=== PATIENT | female | born 1960 | race Caucasian/White ===

== ENCOUNTER 2016-02-18 21:25 | Emergency (ER) ==
[2016-02-18] MEDS ORDERED: PULMICORT INH ONE (22:05)
[2016-02-18] MEDS ORDERED: XOPENEX NEB INH ONE (22:05)
--- NOTE | 2016-02-18 22:08 | PROVIDER DOCUMENTATION ---
HPI-Respiratory General - General Chief Complaint: Shortness of Breath Stated Complaint: SOB Time Seen by Provider: 02/18/16 21:53 Source: patient Allergies/Adverse Reactions: Patient Allergies Allergy/AdvReac Type Severity Reaction Status Date / Time Penicillins Allergy Intermediate HIVES; Verified 02/04/16 18:32 ANAPHYLAXIS morphine Allergy Mild itch Verified 02/04/16 18:32 meperidine HCl * AdvReac Unknown Verified 02/04/16 18:32 [From Demerol] Home Medications: Tiotropium [place] [Spiriva] 1 puff IH DAILY 11/03/11 Budesonide/Formoterol Fumarate [Symbicort 160-4.5 Mcg Inhaler] 2 puff INH BID Albuterol Sulfate [Proair Hfa] 8.5 gm IH DAILY 05/06/15 Bupropion X.l. [Wellbutrin Xl] 150 mg PO DAILY 02/04/16 Enalapril Maleate [Vasotec] 20 mg PO BID 02/04/16 Metformin [Glucophage] 500 mg PO BID CC 02/04/16 Rosuvastatin Calcium [Crestor] 10 mg PO QHS 02/04/16 Sitagliptin Phosphate [Januvia] 100 mg PO BID 02/04/16 - History of Present Illness-Resp Nature of Presenting Problem: 55 y/o WF presents to the ED with SOB and coughing for 2 days. Pt states her breathing has gotten worse today and the last time she felt this way she had pneumonia. Pt states she has coughed so hard that she has rib pain. Quality of Pain: reports: tightness Severity in ED: reports: mild, moderate Onset/Duration: reports: 2 days ago Timing: reports: still present, getting worse Cough Quality/Degree: reports: severe, dry cough Current Respiratory Medication Therapy: Initiated albuterol/atrovent inhale, Initiated A/A nebulizer Modifying Factors: improves with: nothing Associated Symptoms: reports: cough, shortness of breath. denies: fever/chills , headache, muscle/bodyaches, nasal congestion, nasal drainage Similar Symptoms Previously?: Yes Recently seen or treated by another doctor?: No Review of Systems - Adult - REVIEW OF SYSTEMS - ADULT Constitutional: denies: chills, fever Eyes: reports: no symptoms reported Ears, Nose, Mouth & Throat: reports: no symptoms reported Cardiovascular: reports: no symptoms reported Respiratory: reports: cough, shortness of breath Gastrointestinal: denies: abdominal pain, nausea, vomiting Genitourinary: reports: no symptoms reported Musculoskeletal: reports: bone pain (ribs). denies: back pain, joint pain, neck pain Integumentary: reports: no symptoms reported Neurological: reports: no symptoms reported Psychiatric: reports: no symptoms reported Endocrine: reports: no symptoms reported Hematologic/Lymphatic: reports: no symptoms reported Allergic/Immunologic: reports: no symptoms reported All Other Systems: Reviewed and Negative Past History - Adult - PAST MEDICAL HISTORY-ADULT Review of Records: reports: Old Records Reviewed, Nursing Assessment Review, Medications Reviewed Cardiovascular: reports: CAD, HTN, hyperlipidemia Respiratory: reports: COPD, sleep apnea Psychiatric: reports: anxiety Endocrine/Immune: reports: Diabetes Other Conditions: reports: MRSA - PRIOR SURGERIES/PROCEDURES Surgical/Procedure History: reports: appendectomy, cardiac stent (last 2014), BTL, , tonsillectomy, other (pilonidal cyst excision) - PRIOR HOSPITALIZATIONS Prior Hospitalizations: reports: none - IMMUNIZATION STATUS Childhood Immunizations: See Nurse Assessment Flu Vaccine: See Nurse Assessment - FAMILY HISTORY Family History: reviewed, not pertinent - SOCIAL HISTORY Smoking: cigarettes, greater than 1 pack/day Living Situation: alone Physical Exam-General - PHYSICAL EXAM-ADULT Initial Vital Signs Reviewed: Yes - CONSTITUTIONAL General Appearance: alert, no apparent distress, obese (morbid) - EYES Eyes: PERRL/EOMI, pink conjunctivae - HEAD, EARS, NOSE, MOUTH & THROAT HENMT: moist mucous membranes, normal ENT inspection, TMs normal, pharynx normal - NECK Neck: non-tender, full range of motion, supple, normal inspection - RESPIRATORY Respiratory: decreased breath sounds (right), crackles (all serrano), wheezing ( left) - CARDIOVASCULAR Cardiovascular: normal peripheral pulses, regular rate, rhythm - GASTROINTESTINAL (ABDOMEN) Abdominal Exam: normal bowel sounds, non tender, soft - MUSCULOSKELETAL Back Exam: normal inspection, no CVA tenderness, no vertebral tenderness Extremity: normal range of motion, non-tender, normal gait, normal inspection - SKIN Integumentary: normal color, normal turgor, warm/dry - NEUROLOGIC Neurologic: grossly normal, no motor/sensory deficits - PSYCHIATRIC Psych/Mental Status: normal mood/affect, normal thought content, normal thought process, oriented x 3 Progress - PLAN OF CARE/RESULTS Progress/Plan/Lab Results: Orders Category Date Time Status CHEST-2 VIEWS [RAD] Stat Exams 02/18/16 22:04 Taken BNP [PRO B-NATRIURETIC PEPTIDE] Stat Lab 02/18/16 22:30 Completed CBC WITH DIFF [HEME] Stat Lab 02/18/16 22:30 Completed CK PROFILE [SP CHEM] Stat Lab 02/18/16 22:30 Completed COMPREHENSIVE METABOLIC PANEL [CHEM] Stat Lab 02/18/16 22:30 Completed TROPONIN T Stat Lab 02/18/16 22:30 Completed Acetaminophen [Tylenol] Med 02/19/16 01:23 Discontinued 650 mg PO NOW ONE Budesonide [Pulmicort] Med 02/18/16 22:05 Discontinued 0.5 mg INH NOW ONE Furosemide [Lasix] Med 02/18/16 23:34 Discontinued 40 mg IV NOW ONE Ketorolac [Toradol] Med 02/18/16 23:45 Discontinued 30 mg .ROUTE .STK-MED ONE Ketorolac [Toradol] Med 02/18/16 23:35 Discontinued 30 mg IV NOW ONE Levalbuterol Neb [Xopenex Neb] Med 02/18/16 22:05 Discontinued 1.25 mg INH NOW ONE Nitroglycerin Med 02/18/16 23:35 Discontinued 1 inch TOP NOW ONE Oxycodone/APAP 5 mg/325 mg [Percocet-5] Med 02/19/16 01:28 Discontinued 1 each PO NOW ONE Promethazine [Phenergan] Med 02/18/16 23:35 Discontinued 25 mg IV NOW ONE Sodium Chloride 0.9% Med 02/18/16 23:35 Discontinued 10 ml INJ NOW ONE Aerosol Treatments Routine Oth 02/18/16 22:06 Completed Aerosol Treatments Stat Oth 02/18/16 22:06 Completed EKG [EKG] Stat Ther 02/18/16 23:40 Ordered Vital Signs Temp Pulse Resp BP Pulse Ox 02/19/16 01:10 98.6 F 96 H 18 106/60 100 02/18/16 22:20 95 H 22 94 L 02/18/16 21:32 95 H 22 143/68 94 L Penicillins Allergy (Intermediate, Verified 02/04/16 18:32) HIVES; ANAPHYLAXIS morphine Allergy (Mild, Verified 02/04/16 18:32) itch meperidine HCl * [From Demerol] Adverse Reaction (Verified 02/04/16 18:32) Unknown Tiotropium [place] [Spiriva] 1 puff IH DAILY 11/03/11 Budesonide/Formoterol Fumarate [Symbicort 160-4.5 Mcg Inhaler] 2 puff INH BID Albuterol Sulfate [Proair Hfa] 8.5 gm IH DAILY 05/06/15 Bupropion X.l. [Wellbutrin Xl] 150 mg PO DAILY 02/04/16 Enalapril Maleate [Vasotec] 20 mg PO BID 02/04/16 Metformin [Glucophage] 500 mg PO BID CC 02/04/16 Ondansetron [Zofran] 8 mg PO Q6HR #12 tablet 02/04/16 Pantoprazole [Protonix] 40 mg PO DIRECTED #90 tablet 02/04/16 Rosuvastatin Calcium [Crestor] 10 mg PO QHS 02/04/16 Sitagliptin Phosphate [Januvia] 100 mg PO BID 02/04/16 Tramadol [Ultram] 50 mg PO Q6H PRN PRN #12 tablet 02/04/16 Furosemide [Lasix] 20 mg PO DAILY PRN #30 tablet 02/19/16 Laboratory 02/18/16 02/18/16 02/18/16 22:30 22:30 22:30 WBC RBC Hgb Hct MCV MCH MCHC RDW Std Deviation Plt Count MPV Immature Gran % (Auto) Neut % (Auto) Lymph % (Auto) [place] % (Auto) Eos % (Auto) Baso % (Auto) Immature Gran # (Auto) Neut # (Auto) Lymph # (Auto) [place] # (Auto) Eos # (Auto) Baso # (Auto) Sodium 133 L Potassium 4.1 Chloride 97 L Carbon Dioxide 27 Anion Gap 9 BUN 14 Creatinine 1.0 H Estimated GFR/1.73 m2 58 BUN/Creatinine Ratio 14 Glucose 134 H Calculated Osmolality 269 Calcium 9.2 Total Bilirubin 0.20 AST 16 ALT 14 Alkaline Phosphatase 97 Creatine Kinase 568 H Creatine Kinase Index 0.5 CK-MB (CK-2) 2.71 Troponin T < 0.010 Ylr-V-Cijndroggez Pept Total Protein 7.1 Albumin 4.0 Globulin 3.0 Albumin/Globulin Ratio 1.0 02/18/16 02/18/16 22:30 22:30 WBC 9.00 RBC 4.84 Hgb 12.8 Hct 39.7 MCV 82.0 MCH 26.4 L MCHC 32.2 L RDW Std Deviation 14.7 H Plt Count 279 MPV 9.5 Immature Gran % (Auto) 0.2 Neut % (Auto) 60.9 Lymph % (Auto) 26.0 [place] % (Auto) 10.6 H Eos % (Auto) 2.1 Baso % (Auto) 0.2 Immature Gran # (Auto) 0.02 Neut # (Auto) 5.48 Lymph # (Auto) 2.34 [place] # (Auto) 0.95 H Eos # (Auto) 0.19 Baso # (Auto) 0.02 Sodium Potassium Chloride Carbon Dioxide Anion Gap BUN Creatinine Estimated GFR/1.73 m2 BUN/Creatinine Ratio Glucose Calculated Osmolality Calcium Total Bilirubin AST ALT Alkaline Phosphatase Creatine Kinase Creatine Kinase Index CK-MB (CK-2) Troponin T Yar-S-Ppvbiipllyd Pept 482 H Total Protein Albumin Globulin Albumin/Globulin Ratio - EKG 1 Time of EKG reading by physician:: 23:59 EKG Read and Signed by:: Mehul Garcia Rate: 96 Rhythm: NSR QRS: LVH Comments: no acute st- T changes - XRAY 1 XRAY Study: Chest Impression: Normal XRAY Interpretation: no acute infiltrates, tinting in right diaphram Departure - Departure Time of Disposition Order: 01:34 DIAGNOSIS: COPD exacerbation CHF (congestive heart failure) Qualifiers: Congestive heart failure type: unspecified congestive heart failure type Congestive heart failure chronicity: unspecified congestive heart failure chronicity Qualified Code(s): I50.9 - Heart failure, unspecified Disposition: HOME 01 Certified Medical Emergency: Emergent Condition: Fair Additional Instructions: use SYMBICORT twice a day as directed see your doctor tomorrow Prescriptions: Furosemide [Lasix] 20 mg PO DAILY PRN #30 tablet PRN Reason: Congestion Referrals: Quentin Mariano Jr, MD [Primary Care Provider] - Attestation - Scribe Verification/Attestation Scribe:: Sen Farrar Acting as Scribe for:: Mehul Garcia Scribe documention review:: This chart was documented by a scribe and accurately reflects the service the provider performed and the decisions made by the provider.
[2016-02-18 22:35] LABS: MANUAL DIFF NEEDED? NO
[2016-02-18 22:37] LABS: BASO% 0.2 % (0.0-0.8); EOS# 0.19 X1000 (0.0-0.7); EOS% 2.1 % (0.0-10.0); HEMATOCRIT 39.7 % (37.0-47.0); HEMOGLOBIN 12.8 g/dL (12.0-16.0); IMM GRAN# 0.02 X1000 (0.0-0.04); IMM GRAN% 0.2 % (0.0-0.5); LYMPH# 2.34 X1000 (1.2-3.4); MCH 26.4 PG (27-31); MCHC 32.2 g/dL (33-37); MONO# 0.95 X1000 (0.11-0.59); MONO% 10.6 % (1.7-9.3); MPV 9.5 FL (7.4-10.4); NEUT% 60.9 % (42.2-75.2); PLT 279 X1000 (130-400); RBC 4.84 XMIL (4.2-5.4)
[2016-02-18 23:04] LABS: CALCIUM 9.2 mg/dL (8.8-10.2); POTASSIUM 4.1 mmol/L (3.5-5.1); TOTAL BILIRUBIN 0.2 mg/dL (0.20-1.00); TOTAL PROTEIN 7.1 g/dL (6.3-8.3)
[2016-02-18] MEDS ORDERED: LASIX IV ONE (23:34)
[2016-02-18] MEDS ORDERED: PHENERGAN IV ONE (23:35)
[2016-02-18] MEDS ORDERED: NITROGLYCERIN TOP ONE (23:35)
[2016-02-18] MEDS ORDERED: TORADOL IV ONE (23:35)
[2016-02-18] MEDS ORDERED: SODIUM CHLORIDE 0.9% INJ ONE (23:35)
[2016-02-18] MEDS ORDERED: TORADOL ONE (23:45)
[2016-02-19 00:37] LABS: CK INDEX 0.5 (0.0-2.5); CK-MB 2.71 ng/mL (0.0-5.0)
[2016-02-19] MEDS ORDERED: TYLENOL PO ONE (01:23)
[2016-02-19] MEDS ORDERED: PERCOCET-5 PO ONE (01:28)
[2016-02-19 02:08] VITALS: BP 106/63
--- NOTE | 2016-02-19 05:24 | EKG Report ---
Test Performed on : 02/18/2016 11:59:08 PM Test Reason : ER Blood Pressure : / mmHG Vent. Rate : 096 BPM Atrial Rate : 096 BPM P-R Int : 154 ms QRS Dur : 088 ms QT Int : 358 ms P-R-T Axes : 073 049 061 degrees QTc Int : 452 ms Normal sinus rhythm. with sinus arrhythmia. Low voltage QRS Borderline ECG When compared with ECG of 04-FEB-2016 17:22, No significant change was found Unconfirmed Result
--- NOTE | 2016-02-19 11:28 | Diag Imaging Result Document ---
PROCEDURE NAME: CHEST-2 VIEWS - 02/18/2016 CHEST, TWO VIEWS: INDICATION: Shortness of breath. COMPARISON: 02/04/2016. FINDINGS: The heart size is within normal limits. There is stable prominence of the right paratracheal region dating back to 11/03/2011 with no abnormalities noted on a CT angiogram of the pulmonary arteries performed 07/10/2012. There is stable prominent extrapleural density in the right lateral hemithorax. 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 The pulmonary vasculature is not congested. There are no acute infiltrates or effusions. IMPRESSION: Stable chest. No acute abnormalities are appreciated.
== END 2016-02-19 02:08 | disposition home or self-care (01) ==
LOC: P.ED 21:25
DX: J44.1 Chronic obstructive pulmonary disease with (acute) exacerbation (principal); I50.9 Heart failure, unspecified; R06.02 Shortness of breath; R05 Cough; R07.81 Pleurodynia; R06.2 Wheezing; I25.10 Atherosclerotic heart disease of native coronary artery without angina pectoris; I10 Essential (primary) hypertension; Z79.899 Other long term (current) drug therapy; E78.5 Hyperlipidemia, unspecified; E11.9 Type 2 diabetes mellitus without complications; F41.9 Anxiety disorder, unspecified; E66.01 Morbid (severe) obesity due to excess calories; F17.210 Nicotine dependence, cigarettes, uncomplicated; Z79.51 Long term (current) use of inhaled steroids; Z86.14 Personal history of Methicillin resistant Staphylococcus aureus infection; Z95.5 Presence of coronary angioplasty implant and graft
CPT/HCPCS: 71020; 80053; 82550; 82553; 83880; 84484; 85025; 93005; 94640; 96374; 96375; J1885; J1940; J2550

== ENCOUNTER 2016-06-28 14:56 | Inpatient (IN) ==
[2016-06-28] MEDS ORDERED: ASPIRIN PO STA (15:02)
[2016-06-28 15:45] LABS: MANUAL DIFF NEEDED? NO
--- NOTE | 2016-06-28 15:46 | ED EKG INTERP ---
This chart was entered by Claudia Moseley Scribe, acting as scribe for Marycarmen Luciano MD. EKG Interpretation - EKG Time of EKG reading by physician:: 15:08 EKG Read and Signed by:: Marycarmen Luciano EKG Interpretation (*Must complete 3 of following elements*): Normal Rate: 86 Rhythm: Sinus rhythm wtih premature atrial complexes in a pattern of bieminy QRS: other (low voltage) Comments: borderline ECG This chart was documented by the indicated scribe, (Claudia Moseley, Scribe) and accurately reflects the services I performed and decisions made by me, Marycarmen Luciano MD, as attested by the provider's signature.
[2016-06-28 15:54] LABS: BASO% 0.3 % (0.0-0.8); EOS# 0.31 X1000 (0.0-0.7); EOS% 3.6 % (0.0-10.0); HEMATOCRIT 43.3 % (37.0-47.0); HEMOGLOBIN 14.1 g/dL (12.0-16.0); IMM GRAN# 0.04 X1000 (0.0-0.04); IMM GRAN% 0.5 % (0.0-0.5); LYMPH% 32.4 % (20.5-51.1); MCH 26.9 PG (27-31); MCHC 32.6 g/dL (33-37); MCV 82.6 FL (81-99); MONO% 10.4 % (1.7-9.3); MPV 10.9 FL (7.4-10.4); NEUT% 52.8 % (42.2-75.2); PLT 252 X1000 (130-400); RBC 5.24 XMIL (4.2-5.4)
[2016-06-28 16:01] LABS: PROTIME 10.5 Seconds (9.2-11.7); PTT 23.2 Seconds (22.0-36.0)
--- NOTE | 2016-06-28 16:03 | Diag Imaging Result Doc PS360 ---
EXAM: CHEST-2 VIEWS HISTORY: CP TECHNIQUE: Two views the chest. COMMENT: Considering differences in technique there has been no significant change since previous study of 02/18/2016. IMPRESSION: Stable chest. Electronically signed by Luis Manuel Reagan 06/28/2016 4:01 PM
--- NOTE | 2016-06-28 16:14 | PROVIDER DOCUMENTATION ---
This chart was entered by Claudia Moseley Scribe, acting as scribe for Marycarmen Luciano MD. HPI-Chest Pain - General Chief Complaint: Chest Pain Stated Complaint: N/V/D Time Seen by Provider: 06/28/16 15:07 Source: patient Allergies/Adverse Reactions: Patient Allergies Allergy/AdvReac Type Severity Reaction Status Date / Time Penicillins Allergy Intermediate HIVES; Verified 02/04/16 18:32 ANAPHYLAXIS morphine Allergy Mild itch Verified 02/04/16 18:32 meperidine HCl * AdvReac Unknown Verified 02/04/16 18:32 [From Demerol] Home Medications: Home Medication List Medication Instructions Recorded Confirmed Last Taken Type Tiotropium [place] [Spiriva] 1 puff IH DAILY 11/03/11 06/28/16 06/21/16 07:00 History 1 PUFF Budesonide/Formoterol Fumarate 2 puff INH BID 09/07/13 06/28/16 06/21/16 07:00 History [Symbicort 160-4.5 Mcg Inhaler] 2 PUFF Albuterol Sulfate [Proair Hfa] 8.5 gm IH DAILY 05/06/15 06/28/16 06/21/16 07:00 History 8.5 GM Bupropion X.l. [Wellbutrin Xl] 150 mg PO DAILY 02/04/16 06/28/16 06/21/16 07:00 History 150 MG Enalapril Maleate [Vasotec] 20 mg PO BID 02/04/16 06/28/16 06/21/16 07:00 History 20 MG Pantoprazole [Protonix] 40 mg PO DIRECTED #90 tablet 02/04/16 06/28/16 07:00 Rx 40 MG Rosuvastatin Calcium [Crestor] 10 mg PO QHS 02/04/16 06/28/16 06/21/16 07:00 History 10 MG Sitagliptin Phosphate [Januvia] 100 mg PO BID 02/04/16 06/28/16 06/21/16 07:00 History 100 MG Furosemide [Lasix] 20 mg PO DAILY PRN #30 tablet 02/19/16 06/28/16 06/21/16 07: 00 Rx 20 MG Aspirin 325 mg PO DAILY 06/28/16 06/28/16 06/21/16 07:00 History 325 MG Sitagliptin Phos/Metformin HCl 1 each PO BID 06/28/16 06/28/16 06/21/16 07:00 History [Janumet 50-500 mg Tablet] 1 EACH - History of Present Illness-CP Nature of Presenting Problem: 55 year old female presents to the ER with complaint of chest pain x 3 days. Pt states she is also experiencing N/V and tingling in left upper extremity. Pt has had two previous heart attacks and had a heart cath in Nov 2014. Location: reports: epigastric Chest Pain Radiation: reports: arms (left) Onset/Duration: 3 days ago Timing: still present Associated Symptoms: reports: abdominal pain, fever/chills, nausea, vomiting Review of Systems - Adult - REVIEW OF SYSTEMS - ADULT Constitutional: reports: fever (states she felt like she had a fever yesterday) . denies: chills Eyes: reports: no symptoms reported Ears, Nose, Mouth & Throat: reports: no symptoms reported Cardiovascular: reports: chest pain. denies: palpitations Respiratory: reports: cough Gastrointestinal: reports: no symptoms reported Genitourinary: reports: no symptoms reported Musculoskeletal: reports: no symptoms reported Integumentary: reports: no symptoms reported Neurological: reports: no symptoms reported Psychiatric: reports: no symptoms reported Endocrine: reports: no symptoms reported Hematologic/Lymphatic: reports: no symptoms reported Allergic/Immunologic: reports: no symptoms reported All Other Systems: Reviewed and Negative Past History - Adult - PAST MEDICAL HISTORY-ADULT Review of Records: reports: Nursing Assessment Review, Medications Reviewed Cardiovascular: reports: CAD, HTN, hyperlipidemia Respiratory: reports: COPD, sleep apnea Psychiatric: reports: anxiety Endocrine/Immune: reports: Diabetes Other Conditions: reports: MRSA - PRIOR SURGERIES/PROCEDURES Surgical/Procedure History: reports: appendectomy, cardiac stent (last 2014), BTL, , tonsillectomy, other (pilonidal cyst excision) - PRIOR HOSPITALIZATIONS Prior Hospitalizations: reports: none - IMMUNIZATION STATUS Childhood Immunizations: See Nurse Assessment Flu Vaccine: See Nurse Assessment - FAMILY HISTORY Family History: reviewed, not pertinent Physical Exam-General - PHYSICAL EXAM-ADULT Initial Vital Signs Reviewed: Yes - CONSTITUTIONAL General Appearance: alert, no apparent distress - EYES Eyes: PERRL/EOMI, pink conjunctivae - HEAD, EARS, NOSE, MOUTH & THROAT HENMT: normocephalic/atraumatic, moist mucous membranes - NECK Neck: supple, normal inspection - RESPIRATORY Respiratory: lungs clear, normal breath sounds - CARDIOVASCULAR Cardiovascular: normal peripheral pulses, regular rate, rhythm - MUSCULOSKELETAL Back Exam: no CVA tenderness, no vertebral tenderness Extremity: normal range of motion, normal inspection - SKIN Integumentary: normal color, warm/dry - NEUROLOGIC Neurologic: grossly normal, no motor/sensory deficits - PSYCHIATRIC Psych/Mental Status: normal mood/affect, normal thought content, normal thought process, oriented x 3 Progress - PLAN OF CARE/RESULTS Progress/Plan/Lab Results: Vital Signs - 8 hr 06/28/16 14:59 Temperature 98.2 F Pulse Rate 83 Respiratory Rate 18 Blood Pressure 139/62 O2 Sat by Pulse Oximetry 97 Laboratory Results - last 24 hr 06/28/16 06/28/16 06/28/16 15:16 15:16 15:16 WBC 8.63 RBC 5.24 Hgb 14.1 Hct 43.3 MCV 82.6 MCH 26.9 L MCHC 32.6 L RDW Std Deviation 15.6 H Plt Count 252 MPV 10.9 H Immature Gran % (Auto) 0.5 Neut % (Auto) 52.8 Lymph % (Auto) 32.4 [place] % (Auto) 10.4 H Eos % (Auto) 3.6 Baso % (Auto) 0.3 Immature Gran # (Auto) 0.04 Neut # (Auto) 4.55 Lymph # (Auto) 2.80 [place] # (Auto) 0.90 H Eos # (Auto) 0.31 Baso # (Auto) 0.03 PT INR PTT (Actin FS) D-Dimer 0.52 H Sodium 136 Potassium 4.9 Chloride 97 L Carbon Dioxide 25 Anion Gap 14 BUN 15 Creatinine 1.1 H Estimated GFR/1.73 m2 52 BUN/Creatinine Ratio 14 Glucose 153 H Calculated Osmolality 276 Calcium 9.2 Magnesium 1.8 Total Bilirubin 0.21 AST 17 ALT 16 Alkaline Phosphatase 99 Creatine Kinase 165 Troponin T Yyq-O-Mixlxskxgef Pept Total Protein 7.5 Albumin 3.9 Globulin 3.6 Albumin/Globulin Ratio 1.1 06/28/16 06/28/16 06/28/16 15:16 15:16 15:16 WBC RBC Hgb Hct MCV MCH MCHC RDW Std Deviation Plt Count MPV Immature Gran % (Auto) Neut % (Auto) Lymph % (Auto) [place] % (Auto) Eos % (Auto) Baso % (Auto) Immature Gran # (Auto) Neut # (Auto) Lymph # (Auto) [place] # (Auto) Eos # (Auto) Baso # (Auto) PT 10.5 INR 1.00 PTT (Actin FS) 23.2 D-Dimer Sodium Potassium Chloride Carbon Dioxide Anion Gap BUN Creatinine Estimated GFR/1.73 m2 BUN/Creatinine Ratio Glucose Calculated Osmolality Calcium Magnesium Total Bilirubin AST ALT Alkaline Phosphatase Creatine Kinase Troponin T < 0.010 Aav-Y-Mixpxiatqhy Pept 236 H Total Protein Albumin Globulin Albumin/Globulin Ratio Orders Category Date Time Status Cardiac Monitoring DIRECTED Care 06/28/16 15:02 Active Oxygen Therapy- ED Nursing DIRECTED Care 06/28/16 15:02 Active Saline Loc NOW Care 06/28/16 15:02 Active CHEST-2 VIEWS [RAD] Stat Exams 06/28/16 15:02 Completed CBC WITH ELECTRONIC DIFF [HEME] Stat Lab 06/28/16 15:16 Completed CK PROFILE [SP CHEM] Stat Lab 06/28/16 15:16 Completed COMPREHENSIVE METABOLIC PANEL [CHEM] Stat Lab 06/28/16 15:16 Completed D-DIMER [CHEM] Stat Lab 06/28/16 15:16 Completed LIPASE [CHEM] Stat Lab 06/28/16 16:33 Ordered MAGNESIUM [CHEM] Stat Lab 06/28/16 15:16 Completed PRO B-NATRIURETIC PEPTIDE Stat Lab 06/28/16 15:16 Completed PROTIME WITH INR [COAG] Stat Lab 06/28/16 15:16 Completed PTT [COAG] Stat Lab 06/28/16 15:16 Completed TROPONIN T Stat Lab 06/28/16 15:16 Completed UA NIMS W/REFLEX CULT [URINALYSIS] Stat Lab 06/28/16 15:21 Uncollected Aspirin Med 06/28/16 15:02 Discontinued 325 mg PO STAT STA Hydromorphone [Dilaudid] Med 06/28/16 16:15 Discontinued 1 mg IV NOW ONE Lido/Lino Alk/Al&mg Hydrox [G.i. Cocktail] Med 06/28/16 16:15 Discontinued 30 ml PO NOW ONE Nitroglycerin Med 06/28/16 16:35 Discontinued 1 inch TOP NOW ONE Ondansetron [Zofran] Med 06/28/16 16:15 Discontinued 8 mg IV NOW ONE EKG [EKG] Stat Ther 06/28/16 15:02 Ordered Result Diagrams: 06/28/16 15:16 06/28/16 15:16 - CONSULTS/PCP/HOSPITALIST Notification #1 *Consult/PCP/Hospitalist*: Dr. Thornton Reason/Comments: Will admit to ICU Consult Disposition: Admit Departure - Departure Time of Disposition Decision: 16:38 DIAGNOSIS: Chest pain Qualifiers: Chest pain type: unspecified Qualified Code(s): R07.9 - Chest pain, unspecified Disposition: ADMITTED INPATIENT 09 Certified Medical Emergency: Emergent Condition: Stable Referrals and Follow-Ups: Quentin Mariano Jr, MD [Primary Care Provider] - - Critical Care Note This patient required my direct & personal management of CC.: No This chart was documented by the indicated scribe, (Claudia Moseley, Scribe) and accurately reflects the services I performed and decisions made by me, Marycarmen Luciano MD, as attested by the provider's signature.
[2016-06-28] MEDS ORDERED: DILAUDID IV ONE (16:15)
[2016-06-28] MEDS ORDERED: ZOFRAN IV ONE (16:15)
[2016-06-28] MEDS ORDERED: G.I. COCKTAIL PO ONE (16:15)
[2016-06-28 16:17] LABS: ALBUMIN 3.9 g/dL (3.5-5.0); CALCIUM 9.2 mg/dL (8.8-10.2); MAGNESIUM 1.8 mg/dL (1.5-2.7); POTASSIUM 4.9 mmol/L (3.5-5.1); TOTAL BILIRUBIN 0.21 mg/dL (0.20-1.00); TOTAL PROTEIN 7.5 g/dL (6.3-8.3)
[2016-06-28] MEDS ORDERED: NITROGLYCERIN TOP ONE (16:35)
[2016-06-28] MEDS ORDERED: LASIX PO PRN (19:20)
[2016-06-28] MEDS ORDERED: TYLENOL PO PRN (19:26)
[2016-06-28] MEDS ORDERED: PROTONIX PO SCH (19:30)
[2016-06-28] MEDS: NITROGLYCERIN TOP SCH (20:05)
[2016-06-28] MEDS ORDERED: NS 500 ML IV ONE ×2 (20:15→21:04)
[2016-06-28] MEDS: HUMULIN R SUBQ SCH (20:26)
[2016-06-28] MEDS ORDERED: VASOTEC PO SCH (21:00)
[2016-06-28] MEDS: CRESTOR PO SCH (21:11)
[2016-06-28] MEDS: ROBITUSSIN-DM PO SCH (21:34)
[2016-06-28] MEDS: ALBUTEROL NEB INH SCH (23:05)
[2016-06-29] MEDS: ROBITUSSIN-DM PO SCH ×6 (00:49→20:37)
[2016-06-29] MEDS: NITROGLYCERIN TOP SCH ×4 (01:23→20:28)
[2016-06-29] MEDS: ALBUTEROL NEB INH SCH ×5 (03:54→23:15)
[2016-06-29] MEDS: DILAUDID IV PRN ×3 (04:12→20:36)
--- NOTE | 2016-06-29 04:19 | HISTORY AND PHYSICAL ---
CHIEF COMPLAINT: Chest pain. HISTORY OF PRESENT ILLNESS: The patient is a 55-year-old, white female, followed by Dr. Quentin Mariano. Presents to the emergency room complaining of chest pain. She says it began around 3 days ago. Pain has been more present when she has been up moving about and was most pronounced yesterday. She said she would was trying to fold clothes in wash clothes and do the laundry which her daughter he usually helps with. Daughter was out of the house. She says the pain would last for around 4 minutes and then miguelangel. It seemed to improve if she would sit down, so today she has not been nearly as active. She says the pain has been present left upper chest, inferior to the left breast, and she also has noted some tingling sensation down her left mid fingertips, and some numbness in her left thigh area associated. The patient has a history of coronary artery disease and had her last stent in 2014, with PA at that time per her report. Also, had a first stent in 2004, and an PA at that time. The patient has been followed by Dr. North, and thinks she had a stress test maybe the year before last. MEDICATIONS PRIOR TO ADMISSION: 1. ProAir HFA inhaler. 2. Janumet 50/500 one p.o. b.i.d. She says she is on Janumet 100 mg b.i.d., as well. Concerned that is wrong. 3. Aspirin 325 mg p.o. daily. 4. Symbicort 160 two puffs b.i.d. 5. Wellbutrin XL 150 mg p.o. daily. 6. Vasotec 20 mg p.o. b.i.d. 7. Lasix 20 mg p.o. q.a.m. p.r.n. swelling. 8. Protonix 40 mg p.o. daily. 9. Crestor 10 mg p.o. at bedtime. 10. Spiriva 1 inhalation daily. ALLERGIES: Penicillin, morphine, Demerol. PAST MEDICAL HISTORY: 1. CAD, outlined above. 2. Hypertension. 3. Morbid obesity. 4. Hypercholesterolemia. 5. Obstructive sleep apnea. 6. Persistent tobacco abuse, long-standing. 7. Type 2 diabetes mellitus. 8. COPD, on chronic home oxygen therapy at 2 L/minute 24-hours a day. 9. Morbid obesity. PAST SURGICAL HISTORY: 1. BTL. 2. . 3. Appendectomy. 4. Tonsillectomy. 5. Cataract surgery. 6. Pilonidal cyst removal. 7. Stents to the heart x2. FAMILY HISTORY: Notable for mother dying of lung cancer. Also, cancers prominent in her family, as is coronary artery disease. SOCIAL HISTORY: [place] patient [place] the local area. She has been over the past 6 months. She has 1 child of her own, and has 2 other step daughters. She does not drink alcohol, and denies drug use, but she continues to smoke about a quarter to a half-pack a day. She has been a longstanding smoker, smoking up to 3 packs a day in the fairly recent past. REVIEW OF SYSTEMS: Had a bowel movement this morning slightly loose for her. She has had cold symptoms with mild head congestion, sinus drainage, mild nonproductive cough for 2-3 days. She has had no fever. Denies dysuria. Prominent nausea, improved with Zofran in the ER. Otherwise, review of systems completely negative, except as above. PHYSICAL EXAMINATION: VITAL SIGNS: See chart. GENERAL: Morbidly obese white female. Currently, denies any chest pain. Nitroglycerin paste in place. SKIN: No rashes identified. HEENT: NC/AT. PERRL. EOMI. Sclerae clear. OP: No redness. Tongue in the midline. NECK: No LA, TMG, JVD, bruits. Neck is very large. CARDIOVASCULAR: Irregularly irregular. No murmur. LUNGS: Crackles at the left lung base. BACK: Nontender. ABDOMEN: Protuberant. A right ventral hernia is noted, chronic. EXTREMITIES: No calf tenderness, cords, or edema. NEUROLOGIC: Cranial nerves 2-12 are intact. Nonfocal. She moves all extremities well. BREASTS: Deferred. PELVIC: Deferred. RECTAL: Deferred. DIAGNOSTIC DATA: EKG shows bigeminy pattern, without acute ST changes. Chest x-ray shows no acute changes. LABORATORY DATA: White count 8.6, hemoglobin 14.1, hematocrit 43.3, MCV 83, platelets 252,000, neutrophils 53, lymphocytes 33, monocytes 10. PT 10.5, INR 1, PTT 23.2. D-dimer 0.52. Sodium 136, potassium 4.9, chloride 97, CO2 25, BUN 15, creatinine 1.1, glucose 153. Calcium 9.2, magnesium 1.8. Total bilirubin 0.21, AST 17, ALT 16, alkaline phosphatase 99. Total CK 165. Troponin less than 0.01. ProBNP 236. Total protein 7.5, albumin 3.9. Lipase 29. ASSESSMENT: 1. Chest pain, somewhat atypical. 2. Pronounced coronary artery disease. 3. Morbid obesity. 4. Upper respiratory infection. 5. Left lung crackles. 6. Hypertension. 7. Type 2 diabetes mellitus. 8. Dyslipidemia. 9. Obstructive sleep apnea. 10. Chronic obstructive pulmonary disease, on chronic oxygen therapy. 11. Persistent tobacco abuse. PLAN: Encouraged smoking cessation. We will continue her home medications, to include aspirin, Vasotec. We will give her nitroglycerin paste, Dilaudid as needed for pain, Zofran as needed for nausea. We will ask Cardiology to see the patient in the morning. Will obtain serial cardiac enzymes, troponin levels in the interim. cc: MD Quentin Simon Jr, MD
[2016-06-29 04:23] LABS: URINE CULTURE NEEDED? NO; URINE MICRO REVIEW NEEDED? NO; URINE SOURCE CLEAN CATCH
[2016-06-29 04:29] LABS: BILIRUBIN URINE NEGATIVE (NEGATIVE); BLOOD URINE NEGATIVE (NEGATIVE); COLOR YELLOW; GLUCOSE URINE NEGATIVE (NEGATIVE); LEUKOCYTES URINE NEGATIVE (NEGATIVE); NITRITE URINE NEGATIVE (NEGATIVE); PH URINE 5.5; PROTEIN URINE NEGATIVE (NEGATIVE); SP GRAVITY URINE 1.012; TURBIDITY URINE CLEAR (CLEAR); UR EPITHELIAL CELLS <10 /HPF (<10); URINE BACTERIA NEGATIVE /HPF; URINE RBC <10 /HPF (<10); URINE WBC <10 /HPF (<10); UROBILINOGEN URINE NORMAL (NORMAL)
[2016-06-29 04:37] LABS: MANUAL DIFF NEEDED? NO
[2016-06-29 04:45] LABS: BASO% 0.2 % (0.0-0.8); EOS# 0.17 X1000 (0.0-0.7); EOS% 1.9 % (0.0-10.0); HEMOGLOBIN 12.9 g/dL (12.0-16.0); LYMPH# 3.34 X1000 (1.2-3.4); LYMPH% 37.7 % (20.5-51.1); MCH 27.3 PG (27-31); MCHC 32.3 g/dL (33-37); MCV 84.7 FL (81-99); MONO# 0.94 X1000 (0.11-0.59); MONO% 10.6 % (1.7-9.3); MPV 9.9 FL (7.4-10.4); NEUT% 49.6 % (42.2-75.2); PLT 259 X1000 (130-400); RBC 4.72 XMIL (4.2-5.4)
[2016-06-29 05:06] LABS: CALCIUM 8.5 mg/dL (8.8-10.2); POTASSIUM 4.7 mmol/L (3.5-5.1)
--- NOTE | 2016-06-29 05:57 | EKG Report ---
Test Performed on : 06/28/2016 3:08:56 PM Test Reason : Chest Pain Blood Pressure : / mmHG Vent. Rate : 086 BPM Atrial Rate : 086 BPM P-R Int : 156 ms QRS Dur : 086 ms QT Int : 376 ms P-R-T Axes : 063 056 061 degrees QTc Int : 449 ms Sinus rhythm. with premature atrial complexes. in a pattern of bigeminy. Low voltage QRS Borderline ECG When compared with ECG of 18-FEB-2016 23:59, premature atrial complexes. are now present Unconfirmed Result
[2016-06-29] MEDS: PROTONIX PO SCH (06:17)
[2016-06-29] MEDS: HUMULIN R SUBQ SCH ×4 (06:17→20:29)
--- NOTE | 2016-06-29 07:30 | Diag Imaging Result Doc PS360 ---
CHEST-PORTABLE - 06/29/2016 INDICATION: Chest Pain TECHNIQUE: COMPARISON: 06/28/2016 FINDINGS: The lungs are normally expanded and clear. Heart size and mediastinal contours are normal. No pneumothorax or pleural effusion. IMPRESSION: Negative exam. Electronically signed by Alex Jacob 06/29/2016 7:27 AM
--- NOTE | 2016-06-29 07:35 | EKG Report ---
Test Performed on : 06/29/2016 06:40:09 AM Test Reason : CP Blood Pressure : / mmHG Vent. Rate : 070 BPM Atrial Rate : 070 BPM P-R Int : 162 ms QRS Dur : 092 ms QT Int : 416 ms P-R-T Axes : 059 060 072 degrees QTc Int : 449 ms Normal sinus rhythm. with sinus arrhythmia. Normal ECG When compared with ECG of 28-JUN-2016 15:08, premature atrial complexes. are no longer present Confirmed by [facility] BELL, Jony Bustos ([id number]) on 06/29/2016 10:57:16 AM
[2016-06-29] MEDS: SYMBICORT 160/4.5 MICROGM INHALER INH SCH ×2 (07:43→19:35)
[2016-06-29] MEDS: SPIRIVA INH SCH (07:44)
[2016-06-29] MEDS ORDERED: DUONEB (A & A) INH PRN (08:50)
--- NOTE | 2016-06-29 09:06 | PROGRESS NOTE ---
DATE: 06/29/2016 SUBJECTIVE: The patient tells me she had some substernal chest pain, worse with exertion. She has had this since she has been in the hospital. She had also started this past Wednesday having numbness on the left side of her face going down her left arm, and she felt like her face was drawing at one time, but now she has got coronary artery disease and has had a stent placement. She is diabetic and has hyperlipidemia. OBJECTIVE: Vital signs are stable. HEENT: She is normocephalic and atraumatic. PERRLA. Throat clear. Lungs have a few scattered wheezes and scattered rales. She does have COPD. Heart: Regular rate and rhythm without murmurs, gallops, or friction rubs. Abdomen soft with active bowel sounds. No organomegaly or tenderness. Neurological exam is intact at this point. ASSESSMENT: 1. Chest pain with known coronary artery disease. 2. Exacerbation of chronic obstructive pulmonary disease. 3. Possible transient ischemic attack. PLAN: We will get Cardiology and Neurology to look at her. Please see orders. cc: Quentin Mariano Jr, MD
[2016-06-29 09:08] LABS: HDL 28 mg/dL (45-65); LDL 34 mg/dL; TRIGLYCERIDES 248 mg/dL (35-135); VLDL 50 mg/dL
[2016-06-29] MEDS: ASPIRIN PO SCH (09:10)
[2016-06-29] MEDS: WELLBUTRIN XL PO SCH (09:10)
[2016-06-29 09:11] LABS: HEMOGLOBIN A1C 6.8 % (4.8-6.0)
[2016-06-29] MEDS ORDERED: PRINIVIL PO SCH (10:30)
[2016-06-29] MEDS: ZOFRAN IV PRN ×2 (11:14→20:45)
[2016-06-29] MEDS: PRINIVIL PO SCH (11:14)
[2016-06-29] MEDS ORDERED: LEXISCAN ONE (12:07)
[2016-06-29] MEDS ORDERED: AMINOPHYLLINE ONE (12:46)
--- NOTE | 2016-06-29 16:09 | Diag Imaging Result Document ---
PROCEDURE NAME: MYOCARDIAL PERF SCAN, STR/REST - 06/29/2016 PROCEDURE: Lexiscan Cardiolite stress test TECHNIQUE: Lexiscan was infused per standard protocol. The patient baseline blood pressure was 116/51 during Lexiscan infusion. There was a drop in blood pressure to 81/37. Patient was given aminophylline. She did not complain of chest pain. Harrell weak. There were no dysrhythmias noted. Following Lexiscan infusion, Cardiolite was injected. Stress electrocardiogram was negative for ischemia. 15.3 mCi of Cardiolite was injected for the rest phase 44.7 mCi of Cardiolite was injected for the stress phase. Gated SPECT images were obtained in standard views. FINDINGS: Images revealed normal left ventricular systolic function. There is significant chest wall attenuation. There is low-grade reversible perfusion defect in the distal anteroapical portion. This could represent attenuation defect or ischemia. In addition, there was fixed defect noted in the mid and base inferior wall suggestive again of infarct or significant associated diaphragmatic attenuation. However, there is a reversible perfusion defect in the inferolateral wall suggestive of ischemia. There is patchy defect noted. This again could represent significant attenuation defect and/or a cardiomyopathy picture. Recommend clinical correlation. Left ventricular ejection fraction 75%. CONCLUSIONS: 1. Patient had drop in blood pressure during Lexiscan infusion. 2. No chest pain. 3. Negative Lexiscan stress electrocardiogram. 4. Myocardial perfusion images revealed low-grade reversible perfusion defect in the distal anteroapical portion. In addition, there was reversible perfusion defect in the inferolateral portion. This is all associated with significant attenuation, chest and diaphragmatic. Would recommend clinical correlation. 5. There was fixed defect noted in the inferior wall, mid and base in the setting of significant diaphragmatic and chest wall attenuation. Would recommend clinical correlation. Wall motion was normal. Left ventricular ejection fraction 75%. cc: MD Rosa Isela Gunn PA
--- NOTE | 2016-06-29 17:37 | CONSULTATION ---
DATE OF CONSULTATION: 06/29/2016 REASON FOR CONSULTATION: The patient is seen in consultation at the request of Dr. Garcaí Jr. for evaluation of possible transient ischemic attack. HISTORY OF PRESENT ILLNESS: Patient is a 55-year-old white female with multiple stroke risk factors who was admitted yesterday with chest pain. She mentioned also that on Wednesday she had some tingling with numbness involving left side of her face that flushed down into her left arm. Sometimes she has a burning, tingly sensation on the upper outer left thigh. Initially said this was new since Wednesday and that she has had approximately 4 episodes since that time. Near the end of the interview and examination, she tells me that actually she has had intermittent tingling in her left arm for at least a year and it is not always associated with tingling in her face. She does note that this is mostly tingling with maybe some numbness, but that it does not feel like her arm is going to sleep. On Wednesday she noticed it while pushing a shopping cart at [employer]. It did not seem to change when she changed the position of her arm. She says that this lasts a couple of seconds, but no longer than 2 minutes. She does not have any other symptoms during this time. She says her daughter notes that she can tell when she is having one of these episodes because she can see it in her eyes. The patient also mentions that she has had headaches off and on her whole life, but in the last 3 or 4 years her headaches have been more severe and they have been feeling different than her headaches when she was younger. She has tension in her temples and forehead, and it goes into her neck. +nausea. No sensitivity to light or sound. She takes previously Advil and Tylenol, but then that stopped helping as much, so she has recently taken Aleve. She has been in the last couple of months having daily headaches, maybe 1-2 per day. The Aleve helps completely relieves the headache within 1/2 hour. She also later notes that the tingling that she is having in her arm feels like the tingling she had in her arm with prior heart attacks. She has had this tingling during headaches, but also when she has not been having headache. She has no history of seizures. There is no family history of seizures. She said she was dropped when she was a child and hit her head. 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 The patient was around [place] time last year. She says that she has been very depressed since that time and has good days and bad days. She also says that her family member had some type of brain cancer, and when I initially walked in the room she says she thinks she needs a scan of her head. PAST MEDICAL HISTORY: 1. Coronary artery disease. 2. Myocardial infarction x2, status post PCI. 3. Hypertension. 4. Morbid obesity. 5. Hypercholesterolemia. 6. Obstructive sleep apnea. 7. Type 2 diabetes. 8. COPD, on home oxygen. 9. Tobacco abuse, long-standing. 10. Bilateral tubal ligation. 11. . 12. Appendectomy. 13. Tonsillectomy. 14. Cataract surgery. ALLERGIES: Penicillin, morphine and Demerol. FAMILY HISTORY: Her mother of lung cancer. There are also other cancers in the family, including some type of brain cancer. Coronary artery disease. No seizures. Her sister has had migraines. SOCIAL HISTORY: She has been since [place] time. She has been very depressed since that time. She has good days and bad days. She smokes cigarettes. No alcohol or drug use. REVIEW OF SYSTEMS: Notable for some mild cough/cold symptoms and recent nausea as well as headache. Also chest pain and otherwise noted in HPI. MEDICATIONS: Reviewed. She is taking aspirin 325 mg daily, Wellbutrin, Crestor. She is also getting p.r.n. Dilaudid and Zofran. PHYSICAL EXAMINATION: Vital signs: Are reviewed. Her blood pressure today is 138/56, pulse 78. General: The patient is lying in bed, somewhat on her left side. She is morbidly obese. She is pleasant and interactive. Neck: Supple without carotid bruits. Cardiovascular: Regular rate and rhythm. No murmur appreciated. Lungs: Are clear anteriorly. Abdomen: Is soft, nontender. Extremities: Her legs are short. No cyanosis. Neurologic: Mental status: She is awake and alert. Her attention and concentration are intact. Speech is fluent and appropriate. Naming is intact. Language is intact. Cranial nerves: Pupils are equal, round, reactive to light. Extraocular muscles are intact. No nystagmus. Visual serrano are full to direct confrontational testing. Facial sensation is intact. Face is symmetric with equal activation. Hearing is grossly intact. Palate elevates symmetrically. Unable to see the uvula. Tongue is midline. Full shoulder shrug bilaterally. Normal SCM strength. Motor examination: Normal bulk and tone. No abnormal movements. No drift. Her strength is symmetric in all extremities and intact. Reflexes are 1+ throughout and symmetric. Plantar response is flexor bilaterally. No clonus. No Luigi. Sensory exam is intact to vibration and temperature, as well as to light touch. [id number] and rapid alternating movements. Gait was not tested. PERTINENT DIAGNOSTICS: EKG today is normal sinus rhythm. Chest x-ray yesterday was negative. White count 8.8, hemoglobin 13, hematocrit 45, platelets are 259,000. BUN 18, creatinine 1.3. Sodium 141, potassium 4.7, glucose 165, calcium 8.5, magnesium 1.8. AST and ALT are normal as well as alkaline phosphatase. Her CK and troponin are negative. Triglycerides were elevated at 248. LDL 34. HDL 28. Urinalysis is negative. ASSESSMENT AND PLAN: A 55-year-old, female with multiple stroke risk factors admitted with chest pain and cardiac rule out. Also reporting an inconsistent history of brief episodes of left-sided, most prominently tingling, but some numbness. Given her multiple risk factors and a history which is plausible for TIA, I think it is prudent to evaluate with MRI/MRA, although I am not convinced that these are TIAs. I would continue her aspirin 325 mg as you are doing. We will see if the imaging is revealing. The episodes are a bit short lived, making migraine phenomenon less likely as well. The sensations that she is having in her left upper lateral thigh are slightly different in that she notes that there is also burning with the tingling and numbness, and that to me sounds more consistent with meralgia paresthetica, most likely due to her weight. She does report troublesome neck pain longstanding and perhaps her symptoms are due to that, so I have ordered a MRI of her cervical spine as well. Lastly, overall she says mostly her symptoms consist of prominent tingling sensation as opposed to numbness, although when asked she does also say there is maybe some numbness with it. In general, with stroke you would see numbness as opposed to prominent tingling, but again, her history giving is inconsistent. We will order an EEG to assess for any interictal abnormalities. Thank you for this consultation. cc: MD Quentin El Jr, MD MTDD
--- NOTE | 2016-06-29 19:27 | CONSULTATION ---
DATE OF CONSULTATION: 06/29/2016 IMPRESSION: 1. Chest pain, atypical for myocardial ischemia with associated numbness in left arm, left side of face and upper left leg. She describes some associated posterior neck discomfort as well. 2. Atherosclerotic coronary disease with history of previous coronary angioplasty/stenting of the right coronary artery, most recently in November 2014. 3. Morbid obesity. 4. Hypertension. 5. Type 2 diabetes mellitus. 6. Obstructive sleep apnea. 7. Chronic obstructive pulmonary disease. 8. Chronic ongoing cigarette use. RECOMMENDATIONS: 1. Given that there is no objective evidence of ongoing myocardial ischemia, would pursue Lexiscan sestamibi study. If negative, would continue medical management and pursue alternative workup for patient's symptoms. 2. Smoking cessation strongly advised. HISTORY: This 55-year-old female with history of previous coronary angioplasty/stenting of the right coronary artery on 2 occasions, most recently in November 2014, morbid obesity, hypertension, type 2 diabetes mellitus and obstructive sleep apnea was admitted for further evaluation of chest symptoms and left arm and upper left leg numbness and tingling. She describes a vague low substernal mild discomfort for the last 2 days. She also describes some numbness and tingling in the left side of her face, left neck, left upper extremity and upper part of her left leg. She also has some posterior neck discomfort in the low cervical region. She is presently without chest discomfort. PAST MEDICAL HISTORY: 1. Atherosclerotic coronary artery disease, history of two previous coronary angioplasty/stent on the right coronary artery, last in November 2014. 2. Morbid obesity. 3. Hypertension. 4. Hypertension. 5. Type 2 diabetes mellitus. 6. Obstructive sleep apnea. 7. COPD. PAST SURGICAL HISTORY: Appendectomy, tonsillectomy, cataract extraction, section and tubal ligation. ALLERGIC: Allergic or intolerant to penicillin, morphine and meperidine. MEDICATIONS PRIOR TO ADMISSION: As listed. SOCIAL HISTORY: She is and disabled. She lives alone. She smokes occasional cigarette and is rather vague on the number of cigarettes she smokes. She does not use alcohol. FAMILY HISTORY: Negative for premature coronary artery disease. REVIEW OF SYSTEMS: Pulmonary: Negative. Gastrointestinal: Negative. Constitutional: Negative. The remainder of review of systems negative with 14 total systems reviewed. PHYSICAL EXAMINATION: General: This is a morbidly obese, middle-aged female in no distress. Vital signs: Blood pressure 117/61, heart rate is 69 and regular. HEENT: Extraocular movements intact. Mucous membranes are moist. Neck: Supple without jugular venous distention. There are no carotid bruits. Chest: Clear to auscultation. Cardiac: Reveals a regular rate and rhythm without appreciable murmur or gallop. Abdomen: Soft, nontender. Extremities: Without edema. Neurologic: Reveals her to be alert, fully oriented. Speech is fluent. She moves all 4 extremities equally well. Skin: Warm and dry. Psychiatric: Reveals mood to be appropriate. DIAGNOSTICS: ECG demonstrates sinus rhythm with sinus arrhythmia, but is otherwise within normal limits. LABORATORY DATA: Initial troponin T less than 0.01. Followup troponin T less than 0.01. cc: MD Quentin Heller Jr, MD
[2016-06-29] MEDS: CRESTOR PO SCH (20:35)
[2016-06-30] MEDS: DILAUDID IV PRN ×3 (00:57→20:09)
[2016-06-30] MEDS: ZOFRAN IV PRN ×3 (00:59→20:22)
[2016-06-30] MEDS: ALBUTEROL NEB INH SCH ×7 (03:35→23:12)
[2016-06-30] MEDS: ROBITUSSIN-DM PO SCH ×5 (06:13→20:10)
[2016-06-30] MEDS: NITROGLYCERIN TOP SCH ×4 (06:13→20:10)
[2016-06-30] MEDS: HUMULIN R SUBQ SCH ×4 (06:14→20:09)
[2016-06-30] MEDS: PROTONIX PO SCH (07:33)
[2016-06-30] MEDS: SYMBICORT 160/4.5 MICROGM INHALER INH SCH ×2 (07:41→19:42)
[2016-06-30] MEDS: SPIRIVA INH SCH (07:42)
[2016-06-30] MEDS: ASPIRIN PO SCH (08:37)
[2016-06-30] MEDS: WELLBUTRIN XL PO SCH (08:37)
[2016-06-30] MEDS: PRINIVIL PO SCH (08:37)
--- NOTE | 2016-06-30 09:18 | PROGRESS NOTE ---
DATE: 06/30/2016 SUBJECTIVE: The patient says she is still having a little chest pain at times. She has had no more tingling in her left arm or face. OBJECTIVE: Vital Signs: Blood pressure is 92/60, pulse 87 and regular, respirations are 15 and unlabored. Temperature 98.6 degrees Fahrenheit. Oxygen saturation is 93% on 2 L with nasal cannula. HEENT: She is normocephalic. EOMs intact. PERRLA. Throat clear. Lungs: Sound clear to auscultation and percussion without rhonchi, rales, or wheezes. She had a little wheezing yesterday but has had breathing treatments. Heart: Regular rate rhythm without murmurs, gallops, or friction rubs. Abdomen: Soft. Active bowel sounds. No organomegaly or tenderness. Neurological: Examination was intact grossly. Diagnostic Data: By nuclear scan, the heart did show some reversible ischemia, especially in the inferior part of the heart. We will have cardiology interpret and make recommendations. Patient could not get an MRI scan and MRA scan of the brain due to size. We will get carotid flow studies. ASSESSMENT: 1. Chest pain with known coronary artery disease. 2. Possible transient ischemic attack. 3. Chronic obstructive pulmonary disease. 4. Morbid obesity. 5. Adult onset diabetes mellitus. 6. Hyperlipidemia. PLAN: Continue care. Awaiting final evaluations by the specialists. Appreciate Dr. Collado, cardiology, seeing the patient and Dr. Contreras, neurology, seeing the patient. cc: Quentin Mariano Jr, MD
[2016-06-30] MEDS ORDERED: DILAUDID ONE (09:47)
--- NOTE | 2016-06-30 10:49 | PROGRESS NOTE ---
DATE: 06/30/2016 SUBJECTIVE: The patient continues without further chest symptoms. She denies dyspnea on room air. OBJECTIVE: Vital Signs: Blood pressure 92/60, heart rate 87 and irregular. Neck: There is no significant jugular distention. Chest: Clear to auscultation. Cardiac Exam: Was a regular rate and rhythm without appreciable murmur or gallop. There is no evidence of edema. LAB DATA: This includes initial troponin less than 0.01. Followup troponin less than 0.01. Lexiscan sestamibi study reviewed. There is significant soft tissue attenuation and equivocal reversibility as described. Study is essentially nondiagnostic. IMPRESSION: 1. Recent chest pain with atypical features. It is noteworthy that patient has had atypical symptoms in the past associated with coronary disease. There is no objective evidence of ongoing ischemia at this time. 2. Atherosclerotic coronary disease with history of previous coronary angioplasty/stenting of right coronary artery most recently in November 2014. 3. Morbid obesity limiting diagnostic yield of noninvasive testing. 4. Hypertension. 5. Type 2 diabetes mellitus. 6. Obstructive sleep apnea. 7. Chronic obstructive pulmonary disease. 8. Chronic ongoing cigarette use. RECOMMENDATIONS: Nondiagnostic myocardial perfusion study discussed with the patient. She remains very concerned given her chest symptoms albeit atypical and given atypical nature of her chest symptoms in the past. Definitive evaluation with coronary angiography was offered and could be accomplished tomorrow via radial artery approach which is most ideal. Patient advised that is not clear whether she had significant ischemia and she is aware that we do not do coronary angioplasty/stent procedures here. After further discussion including potential procedure, she elected to go ahead and have diagnostic coronary angiography via radial artery approach here tomorrow. cc: MD Quentin Heller Jr, MD
--- NOTE | 2016-06-30 14:12 | PROGRESS NOTE ---
DATE: 06/30/2016 Ms. Damico is awake, alert, bright, attentive, cheerful. Her speech is not dysarthric. She does not have any specific complaints now except for a relatively dull, moderate headache which she reports is chronic. Systolic blood pressure is 94 by the monitor while she is having this headache. Dr. Contreras saw her for neurology evaluation yesterday. There is consideration for further brain imaging, EEG, cervical imaging. No urgent suggestion today. cc: MD Quentin Montana III, Jr, MD
[2016-06-30] MEDS: CRESTOR PO SCH (20:08)
--- NOTE | 2016-06-30 20:49 | Carotid Study ---
DATE: 06/29/2016 PROCEDURE: Carotid duplex imaging. REFERRING PHYSICIAN: Quentin Mariano Jr, MD INTERPRETING PHYSICIAN: MAURICE Quiroz INDICATIONS: TIA. OBSERVED DATA RIGHT LEFT Brachial Blood Pressure Carotid Pulse Bruits: Carotid/Sub DIAGRAM OF ULTRASOUND IMAGING R L RIGHT INT EXT INT EXT LEFT Edward (cm/s) Edward (cm/s) Subclavian 101/0 Subclavian 106/0 CCA Proximal 139/29 CCA Proximal 176/47 CCA Distal 86/26 CCA Distal 148/36 Bulb 97/20 Bulb 95/29 ICA Proximal 112/20 ICA Proximal 121/37 ICA Mid 127/41 ICA Mid 103/32 ICA Distal 97/31 ICA Distal 93/31 ECA 131/18 ECA 142/24 Vertebral 65/11, antegrade Vertebral 70/26, antegrade ICA/CCA Ratio 0.91 ICA/CCA Ratio 0.69 40-59% Stenosis 40-59 % Stenosis FINDINGS: There is some mild atherosclerotic disease noted throughout. There is some elevation in velocities that would correlate to a 40-59% stenosis in bilateral carotid arteries but, given the patient's size, very large neck, views are somewhat limited, and I do not see any flow- limiting stenoses in either system to correlate to these elevations in velocities. The vessels are tortuous and this possible could give some skewing of the findings. PHYSICIAN INTERPRETATION: Estimated 40-59% stenosis in bilateral internal carotid arteries based off of strict velocity criteria, although it is difficult to see any focal plaque disease that is corresponding to these elevations of velocities. cc: MD Quentin Levi Jr, MD MTDNato
[2016-07-01] MEDS: DILAUDID IV PRN ×4 (00:16→19:42)
[2016-07-01] MEDS: ROBITUSSIN-DM PO SCH ×6 (00:40→20:48)
[2016-07-01] MEDS: NITROGLYCERIN TOP SCH ×4 (02:12→19:42)
[2016-07-01] MEDS: ALBUTEROL NEB INH SCH ×7 (03:47→23:12)
[2016-07-01] MEDS ORDERED: TYLENOL PO PRN (03:56)
[2016-07-01] MEDS ORDERED: MAGNESIUM SULFATE 3 GM in NS 100 ML IV PRN (03:56)
[2016-07-01] MEDS ORDERED: ZOFRAN IV PRN (03:56)
[2016-07-01] MEDS ORDERED: RESTORIL PO PRN (03:56)
[2016-07-01] MEDS ORDERED: MAGNESIUM SULFATE 2 GM in STERILE WATER INJ. 50 ML IV PRN ×4 (03:56)
[2016-07-01] MEDS ORDERED: KLOR-CON PO PRN ×3 (03:56)
[2016-07-01] MEDS ORDERED: NITROGLYCERIN SL PRN (03:56)
[2016-07-01] MEDS ORDERED: DULCOLAX PR PRN (03:56)
[2016-07-01] MEDS ORDERED: CEPACOL SORE THROAT LOZENGE MT PRN (03:56)
[2016-07-01] MEDS ORDERED: MILK OF MAGNESIA PO PRN (03:56)
[2016-07-01] MEDS: HUMULIN R SUBQ SCH ×4 (06:02→20:47)
--- NOTE | 2016-07-01 07:18 | EKG Report ---
Test Performed on : 07/01/2016 06:09:23 AM Test Reason : Pre-Heart Cath Blood Pressure : / mmHG Vent. Rate : 077 BPM Atrial Rate : 077 BPM P-R Int : 176 ms QRS Dur : 092 ms QT Int : 368 ms P-R-T Axes : 059 064 056 degrees QTc Int : 416 ms Sinus rhythm. with premature atrial complexes. in a pattern of bigeminy. Otherwise normal ECG When compared with ECG of 29-JUN-2016 06:40, premature atrial complexes. are now present Confirmed by Kaiser BELL, Jony Bustos ([id number]) on 07/01/2016 3:53:52 PM
[2016-07-01] MEDS: ZOFRAN IV PRN (07:20)
[2016-07-01] MEDS: PROTONIX PO SCH (07:39)
[2016-07-01] MEDS: SYMBICORT 160/4.5 MICROGM INHALER INH SCH ×2 (08:10→19:31)
[2016-07-01] MEDS: SPIRIVA INH SCH (08:11)
[2016-07-01] MEDS: ASPIRIN PO SCH (08:20)
[2016-07-01 08:34] LABS: MANUAL DIFF NEEDED? NO
[2016-07-01 08:38] LABS: BASO% 0.2 % (0.0-0.8); EOS# 0.14 X1000 (0.0-0.7); EOS% 1.7 % (0.0-10.0); HEMATOCRIT 38.8 % (37.0-47.0); HEMOGLOBIN 12.5 g/dL (12.0-16.0); LYMPH# 2.62 X1000 (1.2-3.4); MCH 27.2 PG (27-31); MCHC 32.2 g/dL (33-37); MCV 84.3 FL (81-99); MONO# 0.89 X1000 (0.11-0.59); MONO% 10.5 % (1.7-9.3); MPV 9.5 FL (7.4-10.4); NEUT% 56.6 % (42.2-75.2); PLT 255 X1000 (130-400)
[2016-07-01 08:51] LABS: INR 1.02; PROTIME 10.7 Seconds (9.2-11.7); PTT 27.7 Seconds (22.0-36.0)
[2016-07-01 08:54] LABS: CALCIUM 8.8 mg/dL (8.8-10.2); POTASSIUM 5.4 mmol/L (3.5-5.1); TOTAL BILIRUBIN 0.26 mg/dL (0.20-1.00); TOTAL PROTEIN 7.4 g/dL (6.3-8.3)
--- NOTE | 2016-07-01 09:06 | PROGRESS NOTE ---
DATE: 07/01/2016 SUBJECTIVE: The patient did not having any chest pain at this time. She is scheduled to have a heart catheterization today. Neurology is also looking in on her. Her Doppler flow studies did not show significant carotid atherosclerosis, but she does have peripheral vascular disease. OBJECTIVE: Vital Signs: Blood pressure is 126/56, respirations 13, pulse 80, temp 99.9 degrees Fahrenheit. Oxygen saturations 91%. HEENT: She is normocephalic. EOMS intact. PERRLA. Throat clear. Lungs: Clear to auscultation and percussion without rhonchi, rales, or wheezes. Heart: Regular rate rhythm without murmurs, gallops, or friction rubs. Abdomen: Soft. Active bowel sounds. No organomegaly or tenderness. Neurological exam: Intact grossly. ASSESSMENT: 1. Chest pain with known coronary artery disease. 2. Peripheral vascular disease. 3. Numbness of left arm and face. 4. Adult-onset diabetes mellitus. 5. Hyperlipidemia. PLAN: Heart catheterization, then we will make plans after that. cc: Quentin Mariano Jr, MD
--- NOTE | 2016-07-01 09:14 | EEG REPORT ---
DATE: 06/29/2016 REFERRING PHYSICIAN: Dr. Eva Contreras and Dr. Quentin Mariano Jr. EEG #: [id number]. LUNCH TRUCK DRIVER: Imani Hannon. BACKGROUND INFORMATION: Technique: A digitally recorded EEG is performed with one additional channel for EKG. HISTORY OF PRESENT ILLNESS: This is a 55-year-old female with complaints of intermittent tingling in the left face, arm, and leg. An EEG is obtained to evaluate for possible seizures. Medications: Notable for Wellbutrin. EEG FINDINGS: A well-formed 10.5 hertz posterior dominant alpha rhythm is seen symmetrically in the occipital regions and attenuates with eye opening. The anterior background consists of mixed alpha and beta range frequencies. No focal slowing noted. No epileptiform discharges or seizures seen. Hyperventilation was not performed. Photic stimulation induced normal photic driving response at multiple frequencies. The patient becomes drowsy but stage 2 sleep findings are not seen. EKG shows some irregularity with the RR interval. IMPRESSION AND RECOMMENDATIONS.: Normal awake and drowsy routine EEG. Of note, a normal EEG does not rule out epilepsy. Of note, the EKG channel shows some irregularity of the R-R interval on this study. Clinical correlation is advised. cc: MD Quentin El Jr, MD MTDD
[2016-07-01] MEDS ORDERED: HEPARIN 1000 UNITS/NS 2,000 UNIT/1,000 ML IV.SOLN ONE (12:29)
--- NOTE | 2016-07-01 12:38 | PROGRESS NOTE ---
DATE: 07/01/2016 The patient says she is doing better today overall. She has been NPO. She is going down for heart catheterization today. She denies further tingling. She was unable to go for MRI because of her weight. Vital signs are reviewed. General: She is supine in bed. Somewhat on her left side still. She is morbidly obese. She is very pleasant and cooperative. She is appropriate and interactive. She is able to name and repeat. There is no language disturbance. Her pupils are equal, round, and reactive to light. Ocular movements are full. Her face is symmetrical with equal activation. Her motor exam is nonfocal. Her sensory exam is intact to light touch, temperature and painful stimulus. I did not test gait. LABORATORY STUDIES: Sodium of 134, potassium 5.4, BUN 24, creatinine 1.2. Glucose 127. Her LFTs look good. Triglycerides are 248. LDL 34. HDL 28. EEG was reviewed personally and was notable for some mild irregularity of the RR interval on the EKG channel. Otherwise it was a normal routine EEG in the awake and drowsy state. A normal EEG does not rule out epilepsy. ASSESSMENT AND PLAN: This is a 55-year-old female with multiple medical problems who presented with atypical chest pain. She noted that she was having brief episodes of left face and arm and sometimes leg tingling. They were not all at the same time, sometimes they were separate. She was unable to go for MRI due to her size. My suspicion for these episodes of tingling being TIA is quite low. She is already on aspirin for her cardiac disease and would continue anti-platelet per Cardiology. This should help with stroke prevention. I think the most likely explanation for her symptoms would be either cervical spine disease or just peripheral nerve compression. This is not urgent but perhaps as an outpatient she could have imaging of the neck, maybe an open MRI. She may need EMG and nerve conduction study at some point. The EEG did not show anything that was concerning for propensity for seizures. Available as needed. cc: MD Quentin El Jr, MD MTDD
[2016-07-01] MEDS ORDERED: DILAUDID ONE (13:39)
[2016-07-01] MEDS ORDERED: VERSED ONE (13:39)
[2016-07-01] MEDS ORDERED: NS 1,000 ML ONE (13:40)
[2016-07-01] MEDS ORDERED: CLAVE PUMP SET NO FILTER 12260 ONE (13:40)
[2016-07-01] MEDS ORDERED: CLAVE TWINSITE 32 IN 11959 ONE (13:43)
--- NOTE | 2016-07-01 14:05 | PROGRESS NOTE ---
DATE: 07/01/2016 SUBJECTIVE: The patient continues without further chest discomfort. She denies dyspnea on room air. OBJECTIVE: Vital Signs: Blood pressure 140/60, heart rate 65. ECG monitor shows sinus rhythm with frequent premature supraventricular complexes. Neck: There is no significant jugular venous distention. Chest: Clear to auscultation. Cardiac Exam: Reveals a regular rate and rhythm without appreciable murmur or gallop. Extremities: There is no evidence of peripheral edema. IMPRESSION: 1. Recent chest discomfort with atypical features. It is noteworthy that patient had atypical chest symptoms in the past with her coronary disease. Pharmacologic myocardial perfusion study nondiagnostic. 2. Atherosclerotic coronary disease with history of previous coronary angioplasty/stenting of right coronary artery on two occasions, most recent in November 2014. 3. Morbid obesity limiting diagnostic yield and noninvasive testings. 4. Hypertension. 5. Type 2 diabetes mellitus. 6. Chronic obstructive pulmonary disease. 7. Ongoing cigarette use. PLAN: Left heart catheterization with selective coronary geography plan via radial artery approach as discussed with the patient. The rationale for this approach, along with indication of potential hazards, were reviewed and patient wished to proceed. cc: MD Quentin Heller Jr, MD
--- NOTE | 2016-07-01 14:39 | CARDIAC CATH REPORT ---
PROCEDURE NAME: - INDICATION FOR THE PROCEDURE: Patient with a previous history of coronary artery disease and PCI with ongoing chest pain and a nuclear scan that suggested a defect in the anterior wall. PROCEDURES PERFORMED: 1. Left heart catheterization. 2. Selective coronary angiography. 3. Left ventriculogram. PROCEDURE IN DETAIL: Ms. Damico was brought to the Catheterization Laboratory in fasting state. Informed consent was obtained. Prepped in usual fashion. She was anesthetized over the right radial artery after Aravind's test was proved adequate. A 5-Kyrgyz sheath was placed via true Seldinger technique. Radial cocktail was administered. Sheaths and catheters were introduced and hemodynamic measurements made in the ascending thoracic aorta. Coronary angiography was performed in multiple views using JL3.5 and JR4 diagnostic catheters. Left heart catheterization and left ventriculogram was performed using the JR4. At the conclusion of the procedure, all sheaths and catheters were removed. TR band was inflated to 13 mL of air. No apparent complications. 5 mL of blood loss, 50 mL of IV contrast. The patient will return to the floor for usual postprocedure convalescence. FINDINGS: 1. The left main appears normal. 2. The left anterior descending originates from the left main. There is minimal luminal irregularities in the proximal and distal vessel with a normal appearing mid vessel. 3. The circumflex originates from the left main. There is minor luminal irregularities scattered throughout this vessel. 4. Right coronary artery originates from the right coronary cusp. There is a patent proximal stent with no evidence of in-stent stenosis. Minor luminal irregularities are noted in the mid vessel with a normal distal vessel. The PDA comes off the right and appears relatively normal. 5. Left ventriculogram demonstrates an EF of 70% with normal wall motion. 6. The aortic blood pressure is 105/64 with a mean of 80. 7. Left ventricle pressure is 126/10 with an LVEDP of 22. ASSESSMENT: Ms. Damico is a 55-year-old female with a history of PCI who presented for evaluation of chest pain. She had a nuclear scan suggesting a defect. PLAN: She has no flow-limiting lesions. Evaluation should be performed for sources of noncardiac chest pain or possibility that her symptoms could be coming from diastolic failure. Her EDP was elevated at 22. Would consider possible diuresis or further medication adjustments to treat this. I will defer this to Dr. Ceballos, her primary digital account director. cc: MD Quentin Ramsay Jr, MD
[2016-07-01] MEDS: PRINIVIL PO SCH (14:45)
[2016-07-01] MEDS: WELLBUTRIN XL PO SCH (14:46)
[2016-07-01] MEDS ORDERED: ORAJEL MAXIMUM ST 20% GEL TOP PRN (15:28)
[2016-07-01] MEDS: CRESTOR PO SCH (20:47)
[2016-07-02] MEDS: ROBITUSSIN-DM PO SCH ×6 (00:43→20:33)
[2016-07-02] MEDS: NITROGLYCERIN TOP SCH ×4 (01:58→20:31)
[2016-07-02] MEDS: DILAUDID IV PRN ×4 (02:06→21:02)
[2016-07-02] MEDS: ALBUTEROL NEB INH SCH ×6 (03:55→22:54)
[2016-07-02] MEDS: HUMULIN R SUBQ SCH ×4 (06:07→20:32)
[2016-07-02] MEDS: PROTONIX PO SCH (06:13)
[2016-07-02] MEDS: SPIRIVA INH SCH (07:47)
[2016-07-02] MEDS: SYMBICORT 160/4.5 MICROGM INHALER INH SCH ×3 (07:47→19:29)
[2016-07-02] MEDS ORDERED: LASIX IV ONE (07:49)
[2016-07-02] MEDS: WELLBUTRIN XL PO SCH (08:05)
[2016-07-02] MEDS: ASPIRIN PO SCH (08:05)
[2016-07-02] MEDS: PRINIVIL PO SCH (08:07)
--- NOTE | 2016-07-02 09:15 | PROGRESS NOTE ---
DATE: 07/02/2016 Ms. Damico is sitting up in the chair beside the bed, feeding herself. She is bright, awake, alert, attentive, appropriate, spontaneous with conversation. Speech is not dysarthric. There is no new neurologic finding. I have reviewed the progress notes, including Dr. Contreras's note yesterday, and I do not have anything to add to her assessment and suggestions today. Thank you for allowing us to follow Ms. Damico. cc: MD Quentin Montana III, Jr, MD MTDD
[2016-07-02] MEDS: ZOFRAN IV PRN (14:58)
[2016-07-02] MEDS: XANAX PO PRN (16:25)
[2016-07-02 16:40] LABS: CALCIUM 9.4 mg/dL (8.8-10.2); POTASSIUM 4.9 mmol/L (3.5-5.1)
[2016-07-02] MEDS: SOLU-MEDROL IV SCH (17:44)
[2016-07-02] MEDS: ROCEPHIN 1 GM/NS 1 GM/50 ML IVPB IV SCH (17:45)
--- NOTE | 2016-07-02 17:50 | PROGRESS NOTE ---
DATE: 07/02/2016 SUBJECTIVE: The patient says she feels better, but she has been coughing, she has been having some itching around her head. She has been wheezing today as well. OBJECTIVE: Vital signs: Blood pressure 115/52, respirations 20, pulse 70 and regular, temperature 97.5 degrees Fahrenheit. O2 saturations 96%. HEENT: She is normocephalic, extraocular movements intact, PERRLA. Throat clear. Lungs: Have scattered rales rhonchi and wheezes. Heart: Regular rate and rhythm without murmurs, gallops, or friction rubs. Abdomen: Soft. Active bowel sounds. No organomegaly or tenderness. DIAGNOSTICS: Heart catheterization did not show anything that needed intervention other than there was some question about some diastolic heart failure and it was recommend that she may need more diuresis. I did give her 40 mg of Lasix IV and her potassium which had been elevated came back down to normal at 4.9. ASSESSMENT: 1. Chest pain with known coronary artery disease. 2. Diastolic congestive heart failure. 3. Exacerbation of chronic obstructive pulmonary disease. 4. Bronchitis. 5. Bronchospasm. 6. Adult-onset diabetes mellitus. 7. Hyperkalemia, now resolved. 8. Questionable cerebrovascular accident. 9. Morbid obesity. PLAN: 1. We will need to treat the bronchitis and bronchospasm. We will start antibiotics for that. We will treat the diastolic heart failure by increasing her Lasix and will monitor. 2. We will finish workup for numbness in face and left arm as an outpatient. Perhaps can do a magnetic resonance imaging scan of her neck and perhaps her head in the open magnetic resonance imaging, but at this time she will not fit into the magnetic resonance imaging scan here at the hospital. cc: Quentin Mariano Jr, MD
--- NOTE | 2016-07-02 17:57 | Diag Imaging Result Doc PS360 ---
EXAM: CHEST-PORTABLE - 07/02/2016 HISTORY: copd TECHNIQUE: AP portable upright chest 1735 COMPARISON: 06/29/2016 FINDINGS: Heart size appears within normal limits. There is prominence of central markings on the right which appears essentially stable. There is no dense consolidation, gross vascular congestion, substantial pleural effusion, or pneumothorax identified. IMPRESSION: Prominence of central markings on the right similar to prior exam. No discrete pneumonia. Electronically signed by Matthieu Vazquez 07/02/2016 5:55 PM
[2016-07-02] MEDS: CRESTOR PO SCH (20:31)
[2016-07-03] MEDS: ROBITUSSIN-DM PO SCH ×6 (01:40→22:04)
[2016-07-03] MEDS: NITROGLYCERIN TOP SCH ×4 (01:41→19:45)
[2016-07-03] MEDS: SOLU-MEDROL IV SCH ×3 (01:43→16:52)
[2016-07-03] MEDS: ZOFRAN IV PRN ×2 (02:19→18:01)
[2016-07-03] MEDS: DILAUDID IV PRN ×5 (02:19→21:58)
[2016-07-03] MEDS: ALBUTEROL NEB INH SCH ×6 (03:22→23:29)
[2016-07-03 05:09] LABS: HEMATOCRIT 39.3 % (37.0-47.0); IMM GRAN# 0.02 X1000 (0.0-0.04); IMM GRAN% 0.3 % (0.0-0.5); LYMPH# 0.72 X1000 (1.2-3.4); LYMPH% 9.6 % (20.5-51.1); MANUAL DIFF NEEDED? YES; MCH 27.4 PG (27-31); MCHC 33.1 g/dL (33-37); MCV 82.9 FL (81-99); MONO# 0.03 X1000 (0.11-0.59); MONO% 0.4 % (1.7-9.3); MPV 9.9 FL (7.4-10.4); NEUT% 89.7 % (42.2-75.2); PLT 247 X1000 (130-400); RBC 4.74 XMIL (4.2-5.4)
[2016-07-03 05:38] LABS: CALCIUM 9.3 mg/dL (8.8-10.2)
[2016-07-03 05:39] LABS: POTASSIUM 6.6 mmol/L (3.5-5.1)
[2016-07-03] MEDS: HUMULIN R SUBQ SCH ×4 (06:04→22:03)
[2016-07-03] MEDS: ROCEPHIN 1 GM/NS 1 GM/50 ML IVPB IV SCH ×2 (06:04→17:08)
[2016-07-03] MEDS: PROTONIX PO SCH (06:05)
[2016-07-03] MEDS ORDERED: CALCIUM GLUCONATE 1 GM in NS 50 ML IV ONE (06:12)
[2016-07-03 06:57] LABS: BANDS 12 % (0-1); LYMPHS 10 % (21-51)
[2016-07-03] MEDS: SYMBICORT 160/4.5 MICROGM INHALER INH SCH ×2 (08:09→19:07)
[2016-07-03] MEDS: SPIRIVA INH SCH (08:09)
[2016-07-03] MEDS: WELLBUTRIN XL PO SCH (08:58)
[2016-07-03] MEDS: ASPIRIN PO SCH (08:59)
[2016-07-03] MEDS: LASIX IV SCH (08:59)
[2016-07-03] MEDS: PRINIVIL PO SCH (09:00)
[2016-07-03] MEDS: KAYEXALATE PO SCH ×4 (11:17→21:57)
--- NOTE | 2016-07-03 12:18 | PROGRESS NOTE ---
DATE: 07/03/2016 SUBJECTIVE: The patient says she is feeling a little bit better, but she is wheezing. OBJECTIVE: Blood pressure is 118/59, respirations 13 but was 17 earlier, pulse 76 and regular, temperature 98.2 degrees Fahrenheit. HEENT: She is normocephalic. PERRLA. Throat clear. Lungs: Have scattered rales and wheezes. Chest x-ray was essentially clear. Heart: Regular rate and rhythm without murmurs, gallops, or friction rubs. Abdomen soft. Active bowel sounds. No organomegaly or tenderness. Neurologic: Cranial nerves 2-12 intact grossly. Sensory and motor intact. Reflexes 1+ all. LABORATORY: Showed a potassium of 6.6 earlier and, then we repeated it and it was 6.0. It has been slightly elevated on 07/01/2016 at 5.4. She had been placed on some lisinopril which can raise potassium, but she only had a dose or 2. She also had potassium ordered as a p.r.n. by the forest economist apparently when she was going to the analyst microbiology lab, but we cannot find whether she actually got any at that time. Her creatinine has stayed about the same at 1.3 with a BUN of 29. I am not sure exactly why her potassium enrique so high but have started her on Kayexalate, and we will check another potassium tomorrow. ASSESSMENT: 1. Chest pain. 2. Mild chronic heart failure. 3. Chronic obstructive pulmonary disease. 4. Bronchitis; has started antibiotics. 5. Hyperkalemia. 6. Adult-onset diabetes mellitus. 7. Morbid obesity. PLAN: Continue treatment. cc: Quentin Mariano Jr, MD
--- NOTE | 2016-07-03 13:14 | PROGRESS NOTE ---
DATE: 07/03/2016 SUBJECTIVE: Patient relates some chest congestion and cough productive of yellow sputum. She denies any chest pain. There is no dyspnea on room air. OBJECTIVE: Vital Signs: Blood pressure 118/59, heart rate 76 and regular. Oxygen saturation 96%. Chest: Auscultation of the chest reveals a few scattered rhonchi. Cardiac Exam: Reveals a regular rate and rhythm without appreciable murmur or gallop. There is trace pedal edema. IMPRESSION: 1. More recent chest discomfort with atypical features. Patient ultimately had cardiac catheterization/coronary angiography which demonstrated no significant coronary obstructive lesions. 2. Atherosclerotic coronary disease with history of previous coronary angioplasty/stenting of right coronary artery on 2 occasions most recently in November,. 3. Probable acute bronchitis. 4. Hypertension. 5. Type 2 diabetes mellitus. 6. Chronic obstructive pulmonary disease. 7. Chronic ongoing cigarette use. RECOMMENDATIONS: 1. Continue medical management for patient's coronary atherosclerosis, and consider alternative etiologies for patient's chest discomfort. 2. Agree with treatment for acute bronchitis. 3. The patient reasonable to be discharged from a cardiovascular standpoint at this point. We will see further on an as needed basis. Please have patient follow up with me in approximately 1 month after discharge. cc: MD Quentin Heller Jr, MD
[2016-07-03] MEDS: PERCOCET-5 PO PRN ×2 (14:41→19:44)
[2016-07-03] MEDS: XANAX PO PRN (19:43)
[2016-07-03] MEDS: CRESTOR PO SCH (21:57)
[2016-07-04] MEDS: ROBITUSSIN-DM PO SCH ×7 (02:11→20:30)
[2016-07-04] MEDS: SOLU-MEDROL IV SCH ×3 (02:12→17:15)
[2016-07-04] MEDS: NITROGLYCERIN TOP SCH ×4 (02:12→19:21)
[2016-07-04] MEDS: ALBUTEROL NEB INH SCH ×6 (03:08→23:06)
[2016-07-04] MEDS: DILAUDID IV PRN ×4 (03:42→23:29)
[2016-07-04] MEDS: ZOFRAN IV PRN ×4 (03:42→23:29)
[2016-07-04] MEDS: ROCEPHIN 1 GM/NS 1 GM/50 ML IVPB IV SCH ×2 (05:21→17:15)
[2016-07-04 05:26] LABS: BASO% 0.1 % (0.0-0.8); HEMATOCRIT 38.8 % (37.0-47.0); HEMOGLOBIN 12.8 g/dL (12.0-16.0); IMM GRAN# 0.05 X1000 (0.0-0.04); IMM GRAN% 0.5 % (0.0-0.5); LYMPH# 1.09 X1000 (1.2-3.4); LYMPH% 10.6 % (20.5-51.1); MANUAL DIFF NEEDED? YES; MCH 27.5 PG (27-31); MCV 83.4 FL (81-99); MONO# 0.37 X1000 (0.11-0.59); MONO% 3.6 % (1.7-9.3); MPV 9.8 FL (7.4-10.4); NEUT% 85.2 % (42.2-75.2); PLT 292 X1000 (130-400); RBC 4.65 XMIL (4.2-5.4)
[2016-07-04 05:29] LABS: CALCIUM 9.3 mg/dL (8.8-10.2); POTASSIUM 4.6 mmol/L (3.5-5.1)
[2016-07-04 05:58] LABS: BANDS 4 % (0-1); LYMPHS 8 % (21-51)
[2016-07-04] MEDS: HUMULIN R SUBQ SCH ×4 (06:25→20:28)
[2016-07-04] MEDS: PROTONIX PO SCH (06:26)
[2016-07-04] MEDS: SYMBICORT 160/4.5 MICROGM INHALER INH SCH ×3 (07:48→19:15)
[2016-07-04] MEDS: SPIRIVA INH SCH (07:49)
[2016-07-04] MEDS: KAYEXALATE PO SCH (08:03)
[2016-07-04] MEDS: ASPIRIN PO SCH (08:26)
[2016-07-04] MEDS: WELLBUTRIN XL PO SCH (08:26)
[2016-07-04] MEDS: LASIX IV SCH (08:26)
[2016-07-04] MEDS: PRINIVIL PO SCH (08:26)
--- NOTE | 2016-07-04 10:44 | PROGRESS NOTE ---
DATE: 07/04/2016 SUBJECTIVE: The patient says she is feeling better. She is still coughing up some yellow sputum, still having a little wheezing but improving. OBJECTIVE: Vital signs: Blood pressure is 125/75, respirations 18, pulse 79, temp 97.9 degrees Fahrenheit. HEENT: She is normocephalic. EOMs intact. PERRLA. Throat clear. Lungs: Lungs have a few end-expiratory wheezes and some scattered rales. Heart: Regular rate and rhythm without murmurs, gallops, or friction rubs. Abdomen: Soft, active bowel sounds, no organomegaly or tenderness. LABORATORY: Shows potassium after the Kayexalate has come down from 6 down to 4.6. White count is 10,250, hemoglobin 12.8. ASSESSMENT: 1. Chest pain, resolved. 2. Congestive heart failure. 3. Chronic obstructive pulmonary disease. 4. Bronchitis. 5. Hyperkalemia, now improved. 6. Diabetes mellitus. 7. Morbid obesity. PLAN: Continue treatment. cc: Quentin Mariano Jr, MD
[2016-07-04] MEDS: PERCOCET-5 PO PRN (14:57)
[2016-07-04] MEDS: CRESTOR PO SCH (20:28)
[2016-07-04] MEDS: XANAX PO PRN (23:30)
[2016-07-05] MEDS: ROBITUSSIN-DM PO SCH ×3 (01:08→10:27)
[2016-07-05] MEDS: NITROGLYCERIN TOP SCH ×2 (01:09→08:24)
[2016-07-05] MEDS: SOLU-MEDROL IV SCH ×2 (01:09→08:31)
[2016-07-05] MEDS: ALBUTEROL NEB INH SCH ×3 (03:12→11:23)
[2016-07-05] MEDS: DILAUDID IV PRN ×2 (03:39→10:40)
[2016-07-05] MEDS: ROCEPHIN 1 GM/NS 1 GM/50 ML IVPB IV SCH (05:08)
[2016-07-05 05:13] LABS: BASO% 0.1 % (0.0-0.8); HEMATOCRIT 39.3 % (37.0-47.0); HEMOGLOBIN 12.5 g/dL (12.0-16.0); IMM GRAN# 0.07 X1000 (0.0-0.04); IMM GRAN% 0.6 % (0.0-0.5); LYMPH# 0.98 X1000 (1.2-3.4); LYMPH% 8.7 % (20.5-51.1); MANUAL DIFF NEEDED? YES; MCH 26.9 PG (27-31); MCHC 31.8 g/dL (33-37); MCV 84.7 FL (81-99); MONO# 0.42 X1000 (0.11-0.59); MONO% 3.7 % (1.7-9.3); NEUT% 86.9 % (42.2-75.2); PLT 304 X1000 (130-400); RBC 4.64 XMIL (4.2-5.4)
[2016-07-05 05:35] LABS: CALCIUM 9.3 mg/dL (8.8-10.2); POTASSIUM 4.7 mmol/L (3.5-5.1)
[2016-07-05] MEDS: HUMULIN R SUBQ SCH ×2 (06:17→11:09)
[2016-07-05] MEDS: PROTONIX PO SCH (06:17)
[2016-07-05 07:18] LABS: LYMPHS 6 % (21-51); MONO 4 % (1-9)
[2016-07-05] MEDS: SYMBICORT 160/4.5 MICROGM INHALER INH SCH (07:47)
[2016-07-05] MEDS: SPIRIVA INH SCH (07:47)
[2016-07-05] MEDS: PRINIVIL PO SCH (08:24)
[2016-07-05] MEDS: WELLBUTRIN XL PO SCH (08:24)
[2016-07-05] MEDS: ASPIRIN PO SCH (08:24)
[2016-07-05] MEDS: LASIX IV SCH (08:24)
[2016-07-05] MEDS: PERCOCET-5 PO PRN (11:10)
[2016-07-05 11:16] VITALS: BP 125/58
--- NOTE | 2016-07-05 21:22 | DISCHARGE SUMMARY ---
ADMISSION DATE: 06/28/2016 DISCHARGE DATE: 07/05/2016 FINAL DIAGNOSES: 1. Chest pain. 2. Coronary artery disease. 3. Exacerbation of chronic obstructive pulmonary disease. 4. Bronchitis. 5. Congestive heart failure. 6. Morbid obesity. 7. Hyperkalemia, resolved. 8. Hypertension. 9. Adult-onset diabetes mellitus. 10. Morbid obesity. PRESENT ILLNESS: The patient initially presented with substernal chest pain that was worse when she was moving around. We did a stress test and nuclear imaging was really not revealing, so did a heart catheterization that showed her previous stenting was still flowing. Her end-diastolic pressure was 22. So we may have to keep with diuresis. Patient also related a history of numbness in her left arm and left face with some drawing of her left face. Neurology was consulted and we were planning to do an MRI and MRA of her head but, because of her size we were unable to do that. This seems to have resolved. We will work this up as an outpatient. We had a question about whether she was having TIAs. Neurology felt like probably not TIAs and wondered about doing an MRI scan of the head and neck and possibly nerve conduction velocity test to left upper extremity which we can do at a later time. Cardiology was consulted of course, with Dr. Wei and Dr. Collado both seeing her. Dr. Contreras and Dr. Leon for Neurology saw her as well. After the heart catheterization, we considered sending her home, but she started wheezing and felt like she had bronchitis and exacerbation of chronic obstructive pulmonary disease. She is on inhalers at home. I have encouraged her to stopped smoking. We will send her home on antibiotics, probably Cefzil 500 mg p.o. b.i.d., and a Medrol Dosepak and continue her inhalers. While she was in the hospital, she also had some hyperkalemia right after heart catheterization with a potassium of 6.6, and repeated it was 6, gave her Kayexalate and seems to be normal now. We will probably just give her some Lasix, along with her lisinopril. PHYSICAL EXAMINATION: General: She is an obese 55-year-old white female in no apparent distress. She is feeling much better. HEENT: She is normocephalic, EOMs intact. PERRLA. Throat clear. Lungs: Clear to auscultation and percussion without rhonchi, rales, or wheezes. Heart: Regular rate and rhythm without murmurs, gallops, or friction rubs. Abdomen: Soft. Active bowel sounds without organomegaly or tenderness. Neurological: Intact grossly at this time. DISCHARGE INSTRUCTIONS: Please see the medication sheets on discharge. I will see her back in the office in 7-10 days with a chemistry profile. We will place her on a Medrol Dosepak. cc: Quentin Mariano Jr, MD
== END 2016-07-05 13:43 | disposition home or self-care (01) ==
LOC: ED 14:56 → ICU 17:15
PROVIDERS: ADMIT Emergency Medicine; ATTEND Emergency Medicine

== ENCOUNTER 2018-11-08 15:10 | Inpatient (IN) ==
[2018-11-08] MEDS ORDERED: SALINE LOCK IV FLUID XX ONE (17:32)
--- NOTE | 2018-11-08 17:54 | Diag Imaging Result Doc PS360 ---
EXAM: CHEST-PORTABLE HISTORY: copd TECHNIQUE: Chest single view COMPARISON: 01/07/2018 FINDINGS: The lungs are well expanded. The heart is not enlarged. The vessels are not distended. There are no infiltrates. No effusion identified. IMPRESSION: Negative exam. Electronically signed by Raul Justin 11/08/2018 5:51 PM
[2018-11-08] MEDS ORDERED: SOLU-MEDROL IV ONE (18:15)
[2018-11-08] MEDS ORDERED: D50W SYRINGE IV PRN (18:30)
[2018-11-08 18:34] LABS: HEMATOCRIT 43.5 % (37.0-47.0); HEMOGLOBIN 13.2 g/dL (12.0-16.0); MCH 24.8 PG (27-31); MCHC 30.3 g/dL (33-37); MCV 81.6 FL (81-99); RBC 5.33 XMIL (4.2-5.4); RDW 16.9 % (11.5-14.5); WBC 8.99 X1000 (4.8-10.8)
[2018-11-08 18:47] LABS: URINE SOURCE CLEAN CATCH
[2018-11-08 18:58] LABS: ALB/GLOB RATIO 1.4; CREATININE 1.1 mg/dL (0.5-0.9); POTASSIUM 4.5 mmol/L (3.5-5.1); TOTAL BILIRUBIN 0.38 mg/dL (0.20-1.00); TOTAL PROTEIN 6.9 g/dL (6.3-8.3)
[2018-11-08 18:58] LABS: BILIRUBIN URINE NEGATIVE (NEGATIVE); BLOOD URINE NEGATIVE (NEGATIVE); COLOR YELLOW; GLUCOSE URINE >1000 mg/dL (NEGATIVE); KETONE URINE NEGATIVE (NEGATIVE); LEUKOCYTES URINE NEGATIVE (NEGATIVE); NITRITE URINE NEGATIVE (NEGATIVE); PH URINE 5.5; PROTEIN URINE TRACE mg/dL (NEGATIVE); SP GRAVITY URINE 1.041; TURBIDITY URINE CLEAR (CLEAR); UROBILINOGEN URINE 3 mg/dL (NORMAL)
[2018-11-08 19:01] LABS: UR EPITHELIAL CELLS <10 /HPF (<10); URINE BACTERIA NEGATIVE /HPF; URINE RBC <10 /HPF (<10); URINE WBC <10 /HPF (<10)
[2018-11-08 19:04] LABS: INR 1.12; PROTIME 14.5 Seconds (11.0-16.0)
[2018-11-08 19:05] LABS: PTT 34.1 Seconds (22.3-41.8)
[2018-11-08] MEDS: ZITHROMAX 500 MG/NS 500 MG/250 ML IVPB IV SCH (19:38)
[2018-11-08] MEDS: HUMULIN R SUBQ SCH (21:20)
[2018-11-08] MEDS ORDERED: ZOFRAN IV PRN (21:32)
[2018-11-08] MEDS: SOLU-MEDROL IV SCH (23:46)
[2018-11-09] MEDS: HUMULIN R SUBQ SCH ×4 (06:23→21:32)
[2018-11-09] MEDS: SOLU-MEDROL IV SCH ×4 (06:23→23:48)
[2018-11-09 07:13] LABS: BASO# 0.01 X1000 (0.0-0.2); BASO% 0.1 % (0.0-0.8); HEMATOCRIT 46.2 % (37.0-47.0); HEMOGLOBIN 13.8 g/dL (12.0-16.0); IMM GRAN# 0.04 X1000 (0.0-0.04); IMM GRAN% 0.6 % (0.0-0.5); LYMPH% 11.4 % (20.5-51.1); MCH 24.4 PG (27-31); MCHC 29.9 g/dL (33-37); MCV 81.8 FL (81-99); MONO# 0.09 X1000 (0.11-0.59); MONO% 1.3 % (1.7-9.3); NEUT# 6.05 X1000 (1.4-6.5); NEUT% 86.6 % (42.2-75.2); PLT 232 X1000 (130-400); RBC 5.65 XMIL (4.2-5.4); RDW 16.4 % (11.5-14.5); WBC 6.99 X1000 (4.8-10.8)
[2018-11-09 07:38] LABS: AGAP 12; BUN 20 mg/dL (8-22); CHLORIDE 101 mmol/L (98-107); COSMO 288; CREATININE 0.9 mg/dL (0.5-0.9); ESTIMATED GFR > 60; GLUCOSE 204 mg/dL (70-104); POTASSIUM 5.3 mmol/L (3.5-5.1); SODIUM 140 mmol/L (136-145); TCO2 27 mmol/L (25-35)
[2018-11-09] MEDS: SPIRIVA INH SCH (08:05)
[2018-11-09 08:30] LABS: BANDS 2 % (0-1); EOS 2 % (1-10); LYMPHS 14 % (21-51); SEGS 82 % (42-75)
[2018-11-09] MEDS ORDERED: ZOFRAN PO PRN (08:44)
[2018-11-09] MEDS ORDERED: LASIX PO PRN (08:44)
[2018-11-09] MEDS ORDERED: VENTOLIN HFA INH PRN (08:44)
[2018-11-09] MEDS ORDERED: TYLENOL PO PRN (08:44)
[2018-11-09] MEDS ORDERED: SPIRIVA INH SCH (09:00)
--- NOTE | 2018-11-09 09:10 | PROGRESS NOTE ---
DATE: 11/09/2018 SUBJECTIVE: The patient says she is feeling better. She is not quite as short of breath but still does not feel back to her baseline. OBJECTIVE: Vital Signs: Blood pressure 113/34, respirations 17, pulse 73, temperature 97.6 degrees Fahrenheit. HEENT: She is normocephalic. EOMs intact. PERRLA. Throat clear. Lungs: Sound clear to auscultation this morning. Heart: Regular rate and rhythm without murmurs, gallops, friction rubs. Abdomen: Soft. Active bowel sounds. No organomegaly or tenderness. Neurological: Intact grossly. LABORATORY DATA: Oxygen saturation on 3 L is 95%. Weight is 327 pounds and 3 ounces. ASSESSMENT: 1. Chronic obstructive pulmonary disease exacerbation. 2. Respiratory distress, improved. 3. History of congestive heart failure. 4. History of coronary artery disease. 5. Morbid obesity. 6. Diabetes mellitus. LABORATORY DATA: White count 6990, hemoglobin 13.8. Potassium was up a little bit at 5.3, blood sugar 204. Urine normal except for greater than 1000 glucose. The patient is on steroids now, will be harder to control her blood sugars. PLAN: Continue support. Have a consult in with Pulmonology. The patient does show improvement. Having encouraged her strongly to quit all tobacco. cc: Quentin Mariano Jr, MD
[2018-11-09] MEDS: VASOTEC PO SCH ×2 (09:38→21:28)
[2018-11-09] MEDS: COREG PO SCH ×2 (09:38→21:28)
[2018-11-09] MEDS: ASPIRIN PO SCH (09:39)
[2018-11-09] MEDS: NICODERM PATCH TD SCH (09:40)
[2018-11-09] MEDS: PATIENT'S OWN MED PO SCH (09:43)
[2018-11-09] MEDS ORDERED: ZITHROMAX PO ONE (10:26)
[2018-11-09] MEDS: JANUVIA PO SCH ×2 (11:21→21:28)
[2018-11-09] MEDS: GLUCOPHAGE PO SCH ×2 (11:22→21:28)
[2018-11-09] MEDS: NON-FORMULARY MED (Empagliflozin [Jardiance] 0 MG) PO SCH (11:22)
[2018-11-09 12:08] LABS: ALLEN TEST YES; BE 3.2 mmoll (-3.0-3.0); BLOOD TYPE ARTERIAL; HCO3-(ACT) 27.1 mmoll (20.0-26.0); METHB 0.1 % (0.0-1.5); O2(CT) 16.3 mL/dL (15.0-23.0); PO2(98.6) 52 mmHg (60-100); SAMPLE BLOOD; SAO2 86.5 % (95.0-100.0); THB 13.6 g/dL (11.5-17.4); pH(98.6) 7.31 (7.35-7.45)
[2018-11-09 12:10] LABS: PCO2(98.6) 62 mmHg (35-45)
[2018-11-09 12:11] LABS: MODALITY CANNULA; O2HB 85.2 % (95.0-99.0)
[2018-11-09] MEDS: ZITHROMAX 500 MG/NS 500 MG/250 ML IVPB IV SCH (17:21)
[2018-11-09] MEDS ORDERED: ZOFRAN IV ONE (18:25)
[2018-11-09] MEDS: DUONEB (A & A) INH PRN ×2 (19:45→23:56)
--- NOTE | 2018-11-09 20:45 | CONSULTATION ---
DATE OF CONSULTATION: 11/09/2018 REQUESTING PROVIDER: Quentin Mariano Jr, MD REASON FOR CONSULTATION: COPD exacerbation. HISTORY OF PRESENT ILLNESS: This is a 57-year-old female with a medical history of atherosclerotic coronary disease, hypertension, hyperlipidemia, morbid obesity, type 2 diabetes mellitus, obstructive sleep apnea, COPD, chronic hypoxic respiratory failure, ongoing tobacco abuse, gastroesophageal reflux disease. She is well known to our office. She has been admitted to the [facility] since yesterday with COPD exacerbation. The patient currently is sitting in the bed with no acute distress noted. She states she had shortness of breath without activity before coming to the hospital, but is improving at this time and she is feeling better. She does have a dry cough with some chest congestion, which is worsening in the last several days. She reports she feels like her airway got blocked or strangled after breathing treatment, but she still had to take DuoNeb at home almost every 2 to 4 hours because of severe shortness of breath. She also has to use Ventolin when she goes shopping, she can barely walk from the parking lot to the store without it. She reports that she gained about 7 to 8 pounds in the last 3 to 4 months and lately she has developed hoarseness. She has no chest pain, palpitation, bowel habit change, urination discomfort, fever, chills, wheezing, or pedal edema. She reports that she cannot lie flat which makes her have difficulty with breathing. She has BiPAP for over 5 years, which was broken 6 months ago. So, she has not using any BiPAP since then and currently she is on the process to getting on new BiPAP. She apparently had a chest CT per our office recently in the imaging center, but we haven't received the report yet. PAST MEDICAL HISTORY: 1. Atherosclerotic coronary disease. 2. Hypertension. 3. Hyperlipidemia. 4. Morbid obesity. Current BMI 56.2. 5. Type 2 diabetes mellitus. 6. Obstructive sleep apnea; on BiPAP over 5 years, but have not been using it over 6 months because it was broken. Currently, she is on the process to getting a new BiPAP. 7. COPD with Symbicort and Spiriva at home and continuous home oxygen at 2 L. 8. Ongoing tobacco abuse. 9. Gastroesophageal reflux disease. PAST SURGICAL HISTORY: Bilateral tubal ligation, appendectomy, cardiac stenting x2, cataract surgery, , tonsillectomy, and pilonidal cyst excision. SOCIAL HISTORY: Patient lives at home. She has had a cat for 15 years. She smokes. She used to smoke heavily and currently smokes less than half of pack a day. She has been smoking over 40 years. She drinks socially with her sister. She has no history of illicit drug use. FAMILY HISTORY: Mother had lung cancer. Father have coronary artery disease. She has a significant family history of cancer on her mother's side. ALLERGIES: Penicillin, morphine, tramadol. REVIEW OF SYSTEMS: A 10-point review of systems was conducted and the pertinent is listed within the HPI, otherwise noncontributory. PHYSICAL EXAMINATION: Vital Signs: Temperature 98.1 degrees, blood pressure 135/60, pulse 64, respiratory rate 20, oxygen saturation 96% on nasal cannula at 3 L. General: Morbidly obese, sitting on the bed with no acute distress noted. Very present and cooperative. HEENT: Atraumatic, normocephalic. Trachea midline. Mucosa pink and moist. Respiratory: Even and unlabored. Symmetrical excursion. Auscultation revealed diminished breathing sounds bilaterally with some mild early inspiratory crackles bibasilarly. Cardiovascular: Regular rate and rhythm with distant heart sounds. Gastrointestinal: Obese, soft, nontender. Normoactive bowel sounds in all 4 quadrants. Extremities: No pedal edema. No cyanosis. No clubbing. Dorsalis pedis 2+ bilaterally. Neurologic: Alert and oriented x3. Speech fluent. Follows commands. LAB DATA: White blood cells 6.99, hemoglobin 13.8, hematocrit 46.2, platelet 232,000. Sodium 140, potassium 5.3, chloride 101, carbon dioxide 27, BUN 20, creatinine 0.9, glucose 204. ABG, pH 7.31, pCO2 62, PO2 52, HCO3 27.1, base excess 3.2, oxyhemoglobin 85.2. IMAGING DATA: Chest x-ray from the 11/08/2018 was nonsignificant. ASSESSMENT: This is a 57-year-old female with a medical history of atherosclerotic coronary disease, morbid obesity, obstructive sleep apnea, chronic obstructive pulmonary disease, chronic hypoxic respiratory failure, ongoing tobacco abuse, hypertension, hyperlipidemia, diabetes mellitus type 2 and gastroesophageal reflux disease. She has been admitted to [facility] since yesterday with chronic obstructive pulmonary disease exacerbation. 1. Acute on chronic hypoxic respiratory failure. 2. Acute hypercapnic respiratory failure. 3. Chronic obstructive pulmonary disease. 4. Ongoing tobacco abuse. 5. Obstructive sleep apnea. 6. Morbid obesity. PLAN: 1. Continue supplemental oxygen as needed. We will start BiPAP at bedtime. 2. Continue antibiotics, steroid and bronchodilators. 3. Follow up with ABG, CBC, BMP, blood culture and urine culture; follow up CT report in our office. 4. Daily smoking sensation education. 5. Highly recommend weight control. 6. Continue gastrointestinal and deep vein thrombosis prophylaxis. 7. Consider outpatient ENT referral. 8. Further recommendations pending hospital course. Thank you for the courtesy of this consult. Dictated by GEORGINA Mckinley for Adria Martin MD cc: GEORGINA Mckinley MD Roger H. Moss Jr, MD [facility]ITAL[facility]
[2018-11-09] MEDS: EFFEXOR XR PO SCH (21:28)
[2018-11-09] MEDS: AMBIEN PO PRN (21:28)
[2018-11-09] MEDS: CRESTOR PO SCH (21:28)
[2018-11-09] MEDS: SYMBICORT 160/4.5 MICROGM INHALER INH SCH (22:00)
[2018-11-10] MEDS: DUONEB (A & A) INH PRN ×2 (03:42→08:00)
[2018-11-10 05:06] LABS: ALLEN TEST YES; BE 2.1 mmoll (-3.0-3.0); BLOOD TYPE ARTERIAL; HCO3-(ACT) 26.5 mmoll (20.0-26.0); O2HB 95.7 % (95.0-99.0); PO2(98.6) 136 mmHg (60-100); SAMPLE BLOOD; SAO2 95.7 % (95.0-100.0); THB 13.2 g/dL (11.5-17.4)
[2018-11-10 05:12] LABS: MODALITY BI PAP
[2018-11-10 05:13] LABS: PCO2(98.6) 61 mmHg (35-45)
[2018-11-10] MEDS: PROTONIX PO SCH (06:16)
[2018-11-10] MEDS: SOLU-MEDROL IV SCH (06:16)
[2018-11-10] MEDS: HUMULIN R SUBQ SCH ×4 (06:16→21:45)
[2018-11-10 06:56] LABS: BASO# 0.01 X1000 (0.0-0.2); BASO% 0.1 % (0.0-0.8); HEMATOCRIT 44.8 % (37.0-47.0); HEMOGLOBIN 13.5 g/dL (12.0-16.0); IMM GRAN# 0.05 X1000 (0.0-0.04); IMM GRAN% 0.5 % (0.0-0.5); LYMPH# 1.08 X1000 (1.2-3.4); LYMPH% 11.3 % (20.5-51.1); MCH 24.8 PG (27-31); MCHC 30.1 g/dL (33-37); MCV 82.2 FL (81-99); MONO# 0.37 X1000 (0.11-0.59); MONO% 3.9 % (1.7-9.3); MPV 10.5 FL (7.4-10.4); NEUT# 8.03 X1000 (1.4-6.5); NEUT% 84.2 % (42.2-75.2); PLT 259 X1000 (130-400); RBC 5.45 XMIL (4.2-5.4); RDW 16.1 % (11.5-14.5); WBC 9.54 X1000 (4.8-10.8)
[2018-11-10 07:31] LABS: CALCIUM 9.5 mg/dL (8.8-10.2); POTASSIUM 5.3 mmol/L (3.5-5.1)
[2018-11-10] MEDS: SYMBICORT 160/4.5 MICROGM INHALER INH SCH ×2 (08:03→19:27)
[2018-11-10] MEDS: SPIRIVA INH SCH (08:03)
[2018-11-10 08:33] LABS: BANDS 2 % (0-1); LARGE PLATELETS 2+; LYMPHS 18 % (21-51); SEGS 80 % (42-75)
[2018-11-10] MEDS: COREG PO SCH ×2 (08:42→21:10)
[2018-11-10] MEDS: VASOTEC PO SCH ×2 (08:42→21:10)
[2018-11-10] MEDS: JANUVIA PO SCH ×2 (08:42→21:09)
[2018-11-10] MEDS: GLUCOPHAGE PO SCH ×2 (08:42→21:09)
[2018-11-10] MEDS: ASPIRIN PO SCH (08:43)
[2018-11-10] MEDS: NICODERM PATCH TD SCH (08:43)
[2018-11-10] MEDS: NON-FORMULARY MED (Empagliflozin [Jardiance] 0 MG) PO SCH (08:48)
[2018-11-10] MEDS: PATIENT'S OWN MED PO SCH (08:48)
[2018-11-10] MEDS: PREDNISONE PO SCH (10:28)
[2018-11-10] MEDS: DUONEB (A & A) INH SCH ×4 (11:45→23:33)
--- NOTE | 2018-11-10 12:19 | PROGRESS NOTE ---
DATE: 11/10/2018 SUBJECTIVE: The patient is feeling better. OBJECTIVE: Vital Signs: Blood pressure 130/66, respirations 19, pulse 58, temperature 97.4 degrees Fahrenheit. HEENT: She is normocephalic. EOMs intact. PERRLA. Throat clear. Lungs: Now clear to auscultation and percussion without rhonchi, rales, or wheezes. Heart: Regular rate and rhythm without murmurs, gallops, or friction rubs. Abdomen: Soft. Active bowel sounds. No organomegaly or tenderness. Neurological: Examination intact grossly. The patient is on her NicoDerm patches and says that she is doing fine with the 14 mg per 24 hour patches. ASSESSMENT: 1. Exacerbation of chronic obstructive pulmonary disease. 2. Diabetes mellitus. Blood sugar is under fair control. 3. Morbid obesity. 4. Sleep apnea. PLAN: We will change her Solu-Medrol over to p.o. prednisone and see if she tolerates that. cc: Quentin Mariano Jr, MD
[2018-11-10] MEDS ORDERED: ZITHROMAX 500 MG/NS 500 MG/250 ML IVPB IV SCH (18:00)
[2018-11-10] MEDS: AMBIEN PO PRN (21:09)
[2018-11-10] MEDS: CRESTOR PO SCH (21:10)
[2018-11-10] MEDS: EFFEXOR XR PO SCH (21:10)
[2018-11-10] MEDS: MUCINEX PO SCH (21:10)
[2018-11-11] MEDS: DUONEB (A & A) INH SCH ×2 (03:13→08:08)
[2018-11-11] MEDS: PROTONIX PO SCH (06:19)
[2018-11-11] MEDS: HUMULIN R SUBQ SCH (06:20)
[2018-11-11 06:30] LABS: HEMATOCRIT 41.6 % (37.0-47.0); HEMOGLOBIN 12.5 g/dL (12.0-16.0); IMM GRAN# 0.05 X1000 (0.0-0.04); IMM GRAN% 0.4 % (0.0-0.5); LYMPH# 2.66 X1000 (1.2-3.4); LYMPH% 22.4 % (20.5-51.1); MCH 24.5 PG (27-31); MCV 81.6 FL (81-99); MONO# 1.08 X1000 (0.11-0.59); MONO% 9.1 % (1.7-9.3); MPV 10.2 FL (7.4-10.4); NEUT% 68.1 % (42.2-75.2); PLT 271 X1000 (130-400); RDW 16.1 % (11.5-14.5); WBC 11.89 X1000 (4.8-10.8)
[2018-11-11 06:57] LABS: CALCIUM 9.3 mg/dL (8.8-10.2); POTASSIUM 4.2 mmol/L (3.5-5.1)
[2018-11-11 07:19] VITALS: BP 116/57
[2018-11-11] MEDS: SYMBICORT 160/4.5 MICROGM INHALER INH SCH (08:08)
[2018-11-11] MEDS: SPIRIVA INH SCH (08:09)
[2018-11-11] MEDS: MUCINEX PO SCH (08:33)
[2018-11-11] MEDS: ASPIRIN PO SCH (08:33)
[2018-11-11] MEDS: COREG PO SCH (08:33)
[2018-11-11] MEDS: GLUCOPHAGE PO SCH (08:33)
[2018-11-11] MEDS: NICODERM PATCH TD SCH (08:33)
[2018-11-11] MEDS: VASOTEC PO SCH (08:33)
[2018-11-11] MEDS: PATIENT'S OWN MED PO SCH (08:34)
[2018-11-11] MEDS: JANUVIA PO SCH (08:42)
[2018-11-11] MEDS: PREDNISONE PO SCH (08:42)
[2018-11-11] MEDS ORDERED: ZITHROMAX PO SCH (09:00)
--- NOTE | 2018-11-12 04:37 | DISCHARGE SUMMARY ---
ADMISSION DATE: 11/08/2018 DISCHARGE DATE: 11/11/2018 ADMISSION/DISCHARGING PHYSICIAN: Dr. Quentin Mariano. CONSULTATION: Dr. Martin, Pulmonology. FINAL DIAGNOSES: 1. Exacerbation of chronic obstructive pulmonary disease. 2. Hypertension. SECONDARY DIAGNOSES: 1. Congestive heart failure. 2. Diabetes mellitus. 3. Tobacco addiction. 4. Depression. 5. Coronary artery disease status post heart attack. 6. Hyperlipidemia. 7. Hypertension. 8. Morbid obesity. HISTORY OF PRESENT ILLNESS: The patient came to my office very short of breath and wheezing. She said that her O2 sats had been running in the lower to mid 70s at home, and it was 74% in the office with respirations of 20. Weight 326.2 pounds. She is 5 feet 2.5 inches tall. [place] like she needed to be in the hospital for this and admitted her. Started her on IV Zithromax and IV Solu-Medrol. She got breathing treatments. Her bronchospasm finally resolved. Chest x-ray was clear. EKG was stable. The patient does have oxygen at home. I will discharge her. PHYSICAL EXAMINATION: Vital Signs: Stable. HEENT: She is normocephalic. EOMS intact. PERRLA. Throat clear. Lungs: Clear to auscultation and percussion without rhonchi, rales, or wheezes. Heart: Regular rate and rhythm without murmurs, gallops, or friction rubs. Abdomen: Soft. Active bowel sounds. No organomegaly or tenderness. Neurological: Intact grossly. PLAN: We will discharge home with her home medicines, which include Symbicort, Spiriva, and a rescue inhaler, plus her other medicines. She has oxygen at home. She has had enough Zithromax now to last for about 10 days in her system, so I do not think she needs any more antibiotic at this time. Will place her on prednisone 40 mg tapering over 8 days. The patient will take her diabetic medications at home. We will see back in the office next week. cc: Quentin Mariano Jr, MD
== END 2018-11-11 09:59 | disposition home health service (06) | DRG 190 ==
LOC: DIRADM 15:10 → 2N 16:53
PROVIDERS: ADMIT Emergency Medicine; ATTEND Emergency Medicine